=== PATIENT | female | born 1950 | race African-American/Black ===

== ENCOUNTER 2016-08-09 12:37 | Emergency (ER) | payer MEDICARE, MEDICAID ==
[~2016-08-09] VITALS: Ht 170.2 cm; Wt 55.3 kg
[~2016-08-09 12:37] MED LIST: ACETAMINOPHEN-1 EAC1 ORAL; ALBUTEROL SULF8.5 GM INH; AMLODIPINE BESYL5 MG PO; B-121000 MCG PO; BENTYL10 MG ORAL; CALCIUM600 M1 PO; CLINDAMYCIN HC300 MG ORAL; CYCLOBENZAPRINE10 MG ORAL; DOCUSATE SODIU100 MG ORAL; DONNATAL TAB1 TAB ORAL; FERROUS SULFAT325 M2 ORAL; GABAPENTIN100 MG ORAL; GUAIFENESIN-CO118 M1 ORAL; HYDROCODON-ACE1 EA16 ORAL; IRON325 M2 PO; MAALOX ADVANCE770 ML PO; METRONIDAZOLE500 MG ORAL; NICODERM 21MG/241 EA TD; NORCO 10-325 T1 EACH PO; NORCO 5-325 TA1 EACH ORAL; NORCO 5-325 TA1 EACH PO; ONDANSETRON ODT4 MG ORAL; PANTOPRAZOLE SO40 MG ORAL; PROMETHAZINE-C118 M1 ORAL; TYLENOL #31 TAB PO; VITAMIN A8000 UNIT PO; VITAMIN B-12500 MCG ORAL; VITAMIN D3400 UNI2 PO; ZOFRAN ODT4 MG ORAL
[2016-08-09] MEDS ORDERED: ACETAMINOPHEN-1 EAC1 ORAL (13:25)
--- NOTE | 2016-08-09 13:28 | Emergency Room Report ---
History of Present Illness General Chief Complaint: Pain Present Illness HPI The patient is a 66-year-old female with a history of rheumatoid arthritis presenting for a flare up of the arthritis which she states began after the cold weather. The patient has had increased pain of primarily the shoulders and lower back which began 3 days prior.The pain is described as a 10 out of 10 dull ache to these areas The patient states that she usually takes Tylenol No. 3 for the flareups but has not been able to make appointment with her doctor for a refill. Pt denies N, V, F, chills, CP, SOB, coughing, dizziness, rash Allergies: Coded Allergies: IBUPROFEN (Verified Allergy, Severe, HIVES, 12/12/11) Dairy (Unverified Allergy, Unknown, 01/27/16) EGG (Unverified Allergy, Unknown, 01/27/16) IODINE (Verified Allergy, Unknown, 01/13/11) LATEX (Unverified Allergy, Unknown, 01/27/16) [place] (Unverified Allergy, Unknown, 01/27/16) PEACH (Unverified Allergy, Unknown, 01/27/16) PENICILLINS (Verified Allergy, Unknown, 01/13/11) PINEAPPLE (Unverified Allergy, Unknown, HIVES, SWELLING, 01/27/16) STRAWBERRY (Unverified Allergy, Unknown, Hives, 01/27/16) SULFA (SULFONAMIDE ANTIBIOTICS) (Verified Allergy, Unknown, 01/13/11) TRAMADOL (Verified Allergy, Unknown, 02/25/13) PER RN Uncoded Allergies: SEAFOOD (Allergy, Severe, SWELLING, 12/12/11) Patient History Past Medical History: see triage record Pertinent Family History: none Reviewed Nursing Documentation: PMH: Agreed, PSxH: Agreed Nursing Documentation-PMH Hx Hypertension: Yes Hx Pacemaker: No Hx Asthma: Yes Hx COPD: No Hx Diabetes: No Hx Cancer: No Hx Dialysis: No Hx Neurological Problems: No Hx Cerebrovascular Accident: Yes - no deficits Hx Seizures: No Hx Headaches: Yes Review of Systems All Other Systems: negative except mentioned in HPI Physical Exam Vital Signs Date Time Temp Pulse Resp B/P Pulse Ox O2 Delivery O2 Flow Rate FiO2 08/09/16 12:50 98.1 91 20 110/68 95 Room Air Sp02 EP Interpretation: reviewed, normal General Appearance: no apparent distress, alert, GCS 15, non-toxic Head: normocephalic, atraumatic Eyes: bilateral eye PERRL, bilateral eye normal inspection ENT: hearing grossly normal, normal pharynx, no angioedema, normal voice Neck: full range of motion, supple/symm/no masses Respiratory: chest non-tender, lungs clear, normal breath sounds, speaking full sentences Cardiovascular #1: regular rate, rhythm, no edema Musculoskeletal: back normal, normal range of motion, other - Slow gait, tender - TTP over bilat shoulders and low back Neurologic: alert, oriented x3, responsive, motor strength/tone normal, sensory intact, speech normal Psychiatric: judgement/insight normal, memory normal, mood/affect normal, no suicidal/homicidal ideation Skin: normal color, no rash, warm/dry, well hydrated Lymphatic: no adenopathy Medical Decision Making PA Attestation Dr. Rider is my supervising physician. Patient management was discussed with my supervising physician Diagnostic Impression: Primary Impression: Rheumatoid arthritis ER Course The patient is a 66-year-old female with a history of rheumatoid arthritis presenting for a flare up of the arthritis which she states began after the cold weather. Ddx considered include but not limited to sprain/strain, fracture, contusion, arthritis PE: Vitals WNL. NAD There is tenderness to palpation over bilateral shoulders. No obvious deformity. Full active range of motion. Also tenderness to palpation over mid lumbar spine. Slow gait. Otherwise exam unremarkable The patient is given Tylenol #3 for pain with good relief. The patient will be discharged home and will followup with primary care physician as well as pain management. A limited refill for pain medication was given. Last Vital Signs Date Time Temp Pulse Resp B/P Pulse Ox O2 Delivery O2 Flow Rate FiO2 08/09/16 12:50 98.1 91 20 110/68 95 Room Air Status: improved Disposition: HOME, SELF-CARE Condition: Improved Scripts Acetaminophen With Codeine (T#3) (TYLENOL #3 TAB*) Y Tab 2 TAB ORAL Q6H Y for For Pain, #15 TAB Prov: TONY GONZALEZ 08/09/16 Patient Instructions: Rheumatoid Arthritis Additional Instructions: I discussed my findings with the patient. All questions and concerns have been answered. Treatment and medication compliance have been addressed. I advised the patient that they need to follow up with PMD in 3-5 days. Return to ED if symptoms worsen, new symptoms arise, or if needed for any reason. Patient verbalized understanding of discharge instructions. The patient is advised she needs to followup with pain management for further care TONY GONZALEZ Aug 09, 2016 13:27
[2016-08-09] MEDS ORDERED: Tylenol #3 tab (300mg/30mg) ORAL ONE (13:30)
[2016-08-09 13:37] VITALS: BP 110/68
[2016-08-09 13:39] VITALS: BP 110/68
== END 2016-08-09 13:39 | disposition home or self-care (01) ==
LOC: EMR 13:00
DX: M06.9 Rheumatoid arthritis, unspecified (principal); J45.909 Unspecified asthma, uncomplicated; I10 Essential (primary) hypertension; Z88.6 Allergy status to analgesic agent; Z91.012 Allergy to eggs; Z88.2 Allergy status to sulfonamides; Z91.040 Latex allergy status; Z88.0 Allergy status to penicillin; Z91.018 Allergy to other foods; Z91.013 Allergy to seafood; Z86.73 Personal history of transient ischemic attack (TIA), and cerebral infarction without residual deficits
CPT/HCPCS: 99282

== ENCOUNTER 2016-08-09 14:38 | Emergency (ER) | payer MEDICARE, MEDICAID ==
[~2016-08-09] VITALS: Ht 170.2 cm; Wt 55.3 kg
[2016-08-09 14:50] VITALS: BP 120/76
[2016-08-09 15:07] VITALS: BP 120/76
--- NOTE | 2016-08-09 15:09 | Emergency Room Report ---
History of Present Illness General Chief Complaint: Diarrhea Source: Patient (TONY GONZALEZ) Present Illness HPI The pt is a 66 yo F who again presents to the ER today. The pt was seen for chronic pain due to arthritis and NJ'ed . The pt now states she has had diarrhea for the past 2 days. The patient states that she has had 2 episodes of diarrhea today. The patient denies other symptoms including fever, chills, abdominal pain, nausea, vomiting, melena, hematochezia, dizziness, fatigue (TONY GONZALEZ P.AMonica) Allergies: Coded Allergies: IBUPROFEN (Verified Allergy, Severe, HIVES, 12/12/11) Dairy (Unverified Allergy, Unknown, 01/27/16) EGG (Unverified Allergy, Unknown, 01/27/16) IODINE (Verified Allergy, Unknown, 01/13/11) LATEX (Unverified Allergy, Unknown, 01/27/16) [place] (Unverified Allergy, Unknown, 01/27/16) PEACH (Unverified Allergy, Unknown, 01/27/16) PENICILLINS (Verified Allergy, Unknown, 01/13/11) PINEAPPLE (Unverified Allergy, Unknown, HIVES, SWELLING, 01/27/16) STRAWBERRY (Unverified Allergy, Unknown, Hives, 01/27/16) SULFA (SULFONAMIDE ANTIBIOTICS) (Verified Allergy, Unknown, 01/13/11) TRAMADOL (Verified Allergy, Unknown, 02/25/13) PER RN Uncoded Allergies: SEAFOOD (Allergy, Severe, SWELLING, 12/12/11) Patient History Past Medical History: see triage record Pertinent Family History: none Reviewed Nursing Documentation: PMH: Agreed, PSxH: Agreed (TONY GONZALEZ P.AMonica) Nursing Documentation-PMH Past Medical History: No History, Except For Hx Hypertension: No Hx Pacemaker: No Hx Asthma: Yes Hx COPD: No Hx Diabetes: No Hx Cancer: No Hx Gastrointestinal Problems: No Hx Dialysis: No History Of Psychiatric Problem: No Hx Neurological Problems: No Hx Cerebrovascular Accident: Yes - no deficits Hx Seizures: No Hx Headaches: Yes (TONY GONZALEZ P.AMonica) Review of Systems All Other Systems: negative except mentioned in HPI (TONY GONZALEZ P.AMonica) Physical Exam Vital Signs Date Time Temp Pulse Resp B/P Pulse Ox O2 Delivery O2 Flow Rate FiO2 08/09/16 14:50 98.1 90 16 120/76 94 Room Air Sp02 EP Interpretation: reviewed, normal General Appearance: no apparent distress, alert, GCS 15, non-toxic Head: normocephalic, atraumatic Eyes: bilateral eye PERRL, bilateral eye normal inspection Respiratory: chest non-tender, lungs clear, normal breath sounds, speaking full sentences Cardiovascular #1: regular rate, rhythm, no edema Gastrointestinal: normal bowel sounds, non tender, soft, no mass, non-distended , no guarding, no rebound Genitourinary: normal inspection, no CVA tenderness Skin: normal color, no rash, warm/dry, well hydrated (TONY GONZALEZ) Medical Decision Making PA Attestation Dr. Rosales is my supervising physician. Patient management was discussed with my supervising physician (TONY GONZALEZ) Diagnostic Impression: Primary Impression: Diarrhea ER Course The patient is a 66 her old female presenting with 2 days of diarrhea and no other symptoms. Differential diagnosis considered: Gastroenteritis, appendicitis, diverticulosis /diverticulitis, dehydration Physical exam: Vitals within normal limits. No apparent distress. Abdomen: Normal appearance. Non distended. No ecchymosis. Normal BS. Non TTP. No McBurney point tenderness. No guarding. Skin warm and dry. Normal turgor No CVA tenderness The patient is advised this is most likely viral and will self resolve. Patient will continue to take in plenty of oral hydration. Diet information given. ER precautions given (TONY GONZALEZ) Last Vital Signs Date Time Temp Pulse Resp B/P Pulse Ox O2 Delivery O2 Flow Rate FiO2 08/09/16 14:50 98.1 88 16 120/76 94 Room Air Status: improved (TONY GONZALEZ) Last Vital Signs Date Time Temp Pulse Resp B/P Pulse Ox O2 Delivery O2 Flow Rate FiO2 08/09/16 15:07 98.1 90 16 120/76 94 Room Air (Ranulfo Rosales M.D.) Disposition: HOME, SELF-CARE Condition: Improved TONY GONZALEZ Aug 09, 2016 15:09 Ranulfo Rosales M.D. Aug 14, 2016 06:57
== END 2016-08-09 16:00 | disposition home or self-care (01) ==
LOC: EMR 15:54
DX: R19.7 Diarrhea, unspecified (principal); G89.29 Other chronic pain; M19.90 Unspecified osteoarthritis, unspecified site; Z88.2 Allergy status to sulfonamides; Z88.0 Allergy status to penicillin; Z88.6 Allergy status to analgesic agent; Z91.040 Latex allergy status; Z91.012 Allergy to eggs; Z91.018 Allergy to other foods; Z91.013 Allergy to seafood; Z86.73 Personal history of transient ischemic attack (TIA), and cerebral infarction without residual deficits
CPT/HCPCS: 99282

== ENCOUNTER 2016-09-05 21:50 | Emergency (ER) | payer MEDICARE, MEDICAID ==
[~2016-09-05] VITALS: Ht 170.2 cm; Wt 59.0 kg
[2016-09-05] MEDS ORDERED: Solu-MEDROL 125mg Inj IVP ONE (22:30)
[2016-09-05] MEDS ORDERED: Albuterol ud Inhalation HHN ONE (22:30)
[2016-09-05] MEDS ORDERED: Ipratropium 0.02% Inh Soln 2.5ml UD HHN ONE (22:30)
--- NOTE | 2016-09-05 23:03 | Emergency Room Report ---
History of Present Illness General Chief Complaint: Upper Respiratory Illness Source: Patient, Medical Record Present Illness HPI This is a 66-year-old female well-known to me. She has a history of COPD and continued to smoke. Also a history of chronic pain issue. Patient presents with chief complaint of shortness of breath and coughing. Coughing is productive of yellow sputum. Has been a chronic problem for over a month. She would get better with her inhaler and antibiotics. She would then continued to smoke and not using her inhaler and symptom worsen. This took her symptoms been ongoing for about a week. Denies any fever or chills. No nausea no vomiting. Has not used her inhaler. Allergies: Coded Allergies: IBUPROFEN (Verified Allergy, Severe, HIVES, 12/12/11) Dairy (Unverified Allergy, Unknown, 01/27/16) EGG (Unverified Allergy, Unknown, 01/27/16) IODINE (Verified Allergy, Unknown, 01/13/11) LATEX (Unverified Allergy, Unknown, 01/27/16) [place] (Unverified Allergy, Unknown, 01/27/16) PEACH (Unverified Allergy, Unknown, 01/27/16) PENICILLINS (Verified Allergy, Unknown, 01/13/11) PINEAPPLE (Unverified Allergy, Unknown, HIVES, SWELLING, 01/27/16) STRAWBERRY (Unverified Allergy, Unknown, Hives, 01/27/16) SULFA (SULFONAMIDE ANTIBIOTICS) (Verified Allergy, Unknown, 01/13/11) TRAMADOL (Verified Allergy, Unknown, 02/25/13) PER RN Uncoded Allergies: SEAFOOD (Allergy, Severe, SWELLING, 12/12/11) Patient History Past Medical History: see triage record, old chart reviewed, COPD Past Surgical History: other Pertinent Family History: none Social History: Reports: smoking Immunizations: other Reviewed Nursing Documentation: PMH: Agreed, PSxH: Agreed Nursing Documentation-PMH Past Medical History: No History, Except For Hx Hypertension: No Hx Pacemaker: No Hx Asthma: Yes Hx COPD: No Hx Diabetes: No Hx Cancer: No Hx Gastrointestinal Problems: No Hx Dialysis: No Hx Neurological Problems: No Hx Cerebrovascular Accident: Yes - no deficits Hx Seizures: No Hx Headaches: Yes Review of Systems Eye: Denies: blurred vision, eye pain ENT: Denies: ear pain, nose congestion, throat swelling Respiratory: Reports: cough, shortness of breath, wheezing Cardiovascular: Denies: chest pain, palpitations Gastrointestinal: Denies: abdominal pain, diarrhea, nausea, vomiting Musculoskeletal: Denies: back pain, joint pain Skin: Denies: rash Neurological: Denies: headache, numbness Endocrine: Denies: increased thirst, increased urine Hematologic/Lymphatic: Denies: easy bruising All Other Systems: negative except mentioned in HPI Physical Exam Vital Signs Date Time Temp Pulse Resp B/P Pulse Ox O2 Delivery O2 Flow Rate FiO2 09/05/16 22:12 98.6 96 16 178/96 97 09/05/16 22:17 Room Air vitals with hypertension Sp02 EP Interpretation: reviewed, normal General Appearance: alert, mild distress, thin, Chronically Ill Head: normocephalic, atraumatic Eyes: bilateral eye EOMI, bilateral eye PERRL ENT: hearing grossly normal, normal pharynx Neck: full range of motion, supple, no meningismus Respiratory: chest non-tender, decreased breath sounds, accessory muscle use, rhonchi, wheezing Cardiovascular #1: regular rate, rhythm, no murmur Gastrointestinal: normal bowel sounds, non tender, no mass, no organomegaly, no bruit, non-distended Musculoskeletal: back normal, gait/station normal, normal range of motion Neurologic: alert, oriented x3 Psychiatric: mood/affect normal Skin: warm/dry Medical Decision Making Diagnostic Impression: Primary Impression: Pneumonia Qualified Codes: J18.9 - Pneumonia, unspecified organism Additional Impression: COPD with exacerbation ER Course Is a 66-year-old female presents with cough with productive of sputum. X-ray unremarkable. But CT scan show pneumonia. No dissection. Wheezing cleared up. She has risk factor from her smoking and noncompliance with medication. She felt better. I advised her to be admitted to the hospital but she refused. She said she wants to go home. In that case, low put her on antibiotics. No evidence of sepsis, dissection, ACS, PE to name a few. No neoplastic process. Lab Results Impression labs unremarkable Rhythm Strip Diag. Results EP Interpretation: yes Rate: 80 Rhythm: NSR, no PVC's, no ectopy Chest X-Ray Diagnostic Results EP Interpretation: Yes Findings: no consolidation, no effusion, no pneumothorax, no acute cardiopulmonary disease, other - copd Number of Views: 1 CT/MRI/US Diagnostic Results CT/MRI/US Diagnostic Results : Imaging Test Ordered: CT chest Impression read by radiologist. Bilateral lower lobe infiltrates. Last Vital Signs Date Time Temp Pulse Resp B/P Pulse Ox O2 Delivery O2 Flow Rate FiO2 09/05/16 22:17 96 16 Room Air 09/05/16 22:12 98.6 178/96 97 Status: improved Disposition: HOME, SELF-CARE Condition: Stable Scripts Levofloxacin* (LEVAQUIN*) 500 Mg Tablet 500 MG ORAL DAILY, #10 TAB Prov: DON LLOYD M.D. 09/06/16 Prednisone* (PREDNISONE*) 20 Mg Tablet 40 MG ORAL DAILY, #8 TAB Prov: DON LLOYD M.D. 09/06/16 Albuterol Sulfate* (ALBUTEROL SULFATE MDI*) 8.5 Gm Hfa.aer.ad 2 PUFF INH Q4H Y for cough/wheezing, #1 EA 0 Refills Prov: DON LLOYD M.D. 09/06/16 Referrals: NON PHYSICIAN (PCP) Additional Instructions: Followup with your DrMonica in one to 2 days. Return if symptom worsen. DON LLOYD M.D. Sep 05, 2016 23:03
[2016-09-05 23:15] VITALS: BP 131/78
[2016-09-05 23:19] LABS: BASOPHILS % (AUTO) 0.6 % (0.0-2.0); MEAN CORPUSCULAR HEMOGLOBIN 24.7 PG (27.0-31.0); MEAN CORPUSCULAR VOLUME 80 FL (80-99); MONOCYTES % (AUTO) 2.5 % (1.0-10.0); PLATELET COUNT 419 K/UL (150-450); RED BLOOD COUNT 5.45 M/UL (4.20-5.40); RED CELL DISTRIBUTION WIDTH 13.7 % (11.6-14.8); WHITE BLOOD COUNT 14.7 K/UL (4.8-10.8)
[2016-09-05] MEDS ORDERED: DiphenhydrAMINE 50mg/ml Inj IVP ONE (23:30)
[2016-09-05 23:32] LABS: ALANINE AMINOTRANSFERASE 8 U/L (3-33); ALBUMIN/GLOBULIN RATIO 1.2 (1.0-2.7); ANION GAP 16 (5-15); ASPARTATE AMINO TRANSFERASE 18 U/L (5-40); CALCIUM 9.6 mg/dL (8.6-10.2); CARBON DIOXIDE 30 mEQ/L (20-30); CHLORIDE 94 mEQ/L (98-107); CREATININE 0.5 mg/dL (0.5-0.9); GLOMERULAR FILTRATION RATE > 60 mL/min (>60); HEMOLYSIS 6; SODIUM 140 mEQ/L (135-145); TOTAL PROTEIN 7.6 g/dL (6.6-8.7); TROPONIN I < 0.30 ng/mL (<=0.30)
[2016-09-05 23:37] LABS: APPEARANCE,URINE CLEAR; KETONES,URINE NEGATIVE (NEGATIVE); LEUKOCYTE ESTERASE ,URINE 1+ (NEGATIVE); NITRITE,URINE POSITIVE (NEGATIVE); PH,URINE 6.5 (4.5-8.0); PROTEIN,URINE NEGATIVE (NEGATIVE); UROBILINOGEN,URINE 1 MG/DL (0.0-1.0)
[2016-09-06 00:15] LABS: BACTERIA,URINE FEW /HPF; RBC,URINE 0-2 /HPF (0 - 2); SQUAMOUS EPITHELIAL CELL,UR FEW /LPF (NONE/OCC)
[2016-09-06 01:15] VITALS: BP 135/88
[2016-09-06] MEDS ORDERED: cefTRIAXone 1 GM in NS 55 ML IVPB ONE (01:30)
[2016-09-06] MEDS ORDERED: ALBUTEROL SULF8.5 GM INH (01:37)
[2016-09-06] MEDS ORDERED: LEVAQUIN500 MG ORAL (01:37)
[2016-09-06] MEDS ORDERED: PREDNISONE20 MG ORAL (01:37)
[2016-09-06] MEDS ORDERED: Ketorolac 30mg Inj ONE (01:53)
[2016-09-06] MEDS ORDERED: Ketorolac 30mg Inj IV ONE (02:00)
[2016-09-06 02:02] VITALS: BP 135/88
--- NOTE | 2016-09-06 10:46 | Diagnostic Imaging Report ---
ndication: SOB, chest pain Technique: IV administration nonionic contrast. Spiral acquisitions obtained from the lung bases to the lung apices. Multiplanar and 3-D reconstructions were generated. Total dose length product 727 mGycm. CTDIvol(s) 12, 50, 21 mGy Comparison: None Findings: There is good opacification of the pulmonary arteries. No intraluminal filling defects or other findings to suggest acute pulmonary embolus are demonstrated. No evidence of thoracic aortic aneurysm or dissection. Normal caliber pulmonary arteries. No evidence of left ventricular dilatation. There is classic branching anatomy of the great neck vessels. There is borderline cardiomegaly. The lungs demonstrate an area of groundglass opacity in the inferior left upper lobe, smaller similar area in the inferior right upper lobe, and some groundglass opacities and associated nodularity in both lower lobes. No effusions. No dense consolidation. No definite masses. No pericardial effusion is demonstrated. There are prominent mediastinal lymph nodes, with paratracheal nodes measuring up to 15 mm long axis dimension. The thyroid is unremarkable. No axillary or chest wall mass or adenopathy. There are mild degenerative changes of the thoracic spine aerated Included upper abdomen demonstrates pneumobilia. Impression: No evidence of acute pulmonary embolus Bilateral parenchymal opacities, as described. Nonspecific, could reflect areas of acute inflammation, post inflammatory change, or pulmonary edema. Correlation with clinical findings is recommended. Recommend followup to resolution Borderline mediastinal lymphadenopathy. Nonspecific, could be reactive or neoplastic Incidental finding of pneumobilia. Correlate with any prior clinical history of endobiliary intervention This agrees with the preliminary interpretation provided overnight by [facility] teleradiology service. The CT scanner at [facility] is accredited by the [employer] and the scans are performed using protocols designed to limit radiation exposure to as low as reasonably achievable to attain images of sufficient resolution adequate for diagnostic evaluation.
--- NOTE | 2016-09-06 17:42 | Diagnostic Imaging Report ---
Indication: SOB Technique: One view of the chest Comparison: none Findings: Lungs and pleural spaces are clear. Heart size is normal. The aorta is tortuous. There is no significant interim change Impression: No acute process
== END 2016-09-06 02:02 | disposition home or self-care (01) ==
LOC: EMR 22:29
DX: J18.9 Pneumonia, unspecified organism (principal); J44.1 Chronic obstructive pulmonary disease with (acute) exacerbation; F17.200 Nicotine dependence, unspecified, uncomplicated; Z88.6 Allergy status to analgesic agent; Z91.012 Allergy to eggs; Z91.011 Allergy to milk products; Z91.013 Allergy to seafood; Z88.0 Allergy status to penicillin; Z91.018 Allergy to other foods; Z88.2 Allergy status to sulfonamides; Z91.041 Radiographic dye allergy status; Z86.73 Personal history of transient ischemic attack (TIA), and cerebral infarction without residual deficits; Z87.09 Personal history of other diseases of the respiratory system; I10 Essential (primary) hypertension
CPT/HCPCS: 36415; 71010; 71275; 80053; 81003; 83605; 84484; 85025; 85610; 85730; 87040; 87070; 87205; 94640; 94664; 96360; 96374; 96375; 99284; J0696; J1200; J1885; J2930; Q9967

== ENCOUNTER 2016-11-10 18:28 | Emergency (ER) | payer MEDICARE, MEDICAID ==
[~2016-11-10] VITALS: Ht 170.2 cm; Wt 55.3 kg
[~2016-11-10 18:28] MED LIST changes: +LEVAQUIN500 MG ORAL; +PREDNISONE20 MG ORAL
[2016-11-10] MEDS ORDERED: Clindamycin 150mg cap ORAL STA (18:51)
--- NOTE | 2016-11-10 18:56 | Emergency Room Report ---
History of Present Illness General Chief Complaint: Pain Source: Patient Present Illness HPI Patient presents with R forehead pain. This began last night. There is some swelling. There has been some tearing and swelling below R eye. Pain constant 10/10, burning and pressure. Not headache. Some swelling in forehead. No fevers, sinus pain, URI, chest pain, Patient with chronic anemia. No rashes. No change in vision. No pain medicine at home. In past seen for headache and rheumatoid arthritis. Allergies: Coded Allergies: IBUPROFEN (Verified Allergy, Severe, HIVES, 12/12/11) Dairy (Unverified Allergy, Unknown, 01/27/16) EGG (Unverified Allergy, Unknown, 01/27/16) IODINE (Verified Allergy, Unknown, 01/13/11) LATEX (Unverified Allergy, Unknown, 01/27/16) [place] (Unverified Allergy, Unknown, 01/27/16) PEACH (Unverified Allergy, Unknown, 01/27/16) PENICILLINS (Verified Allergy, Unknown, 01/13/11) PINEAPPLE (Unverified Allergy, Unknown, HIVES, SWELLING, 01/27/16) STRAWBERRY (Unverified Allergy, Unknown, Hives, 01/27/16) SULFA (SULFONAMIDE ANTIBIOTICS) (Verified Allergy, Unknown, 01/13/11) TRAMADOL (Verified Allergy, Unknown, 02/25/13) PER RN Uncoded Allergies: SEAFOOD (Allergy, Severe, SWELLING, 12/12/11) Patient History Past Medical History: see triage record Social History: Reports: smoking Social History Narrative at home Now: No Nursing Documentation-[facility] Past Medical History: No History, Except For Hx Hypertension: No Hx Pacemaker: No Hx Asthma: Yes Hx COPD: No Hx Diabetes: No Hx Cancer: No Hx Gastrointestinal Problems: No Hx Dialysis: No Hx Neurological Problems: No Hx Cerebrovascular Accident: Yes - no deficits Hx Seizures: No Hx Headaches: Yes Review of Systems All Other Systems: negative except mentioned in HPI Physical Exam Vital Signs Date Time Temp Pulse Resp B/P Pulse Ox O2 Delivery O2 Flow Rate FiO2 11/10/16 18:38 98.1 96 15 127/77 97 Room Air Sp02 EP Interpretation: reviewed, normal General Appearance: well appearing, no apparent distress Head: normocephalic, atraumatic, other - swelling R forehead, no fluctuance - area 1X1.5 Eyes: right eye other - no FB, bilateral eye EOMI, bilateral eye PERRL, bilateral eye conjunctivae pale, bilateral eye normal inspection ENT: hearing grossly normal, normal voice, moist mucus membranes Neck: full range of motion, supple Respiratory: lungs clear, no respiratory distress, speaking full sentences Cardiovascular #1: regular rate, rhythm, no edema Musculoskeletal: back normal, digits/nails normal, no calf tenderness Neurologic: alert, oriented x3, normal gait, grossly normal Psychiatric: mood/affect normal Skin: no rash, pallor Medical Decision Making Diagnostic Impression: Primary Impression: Facial cellulitis ER Course Patient with pain forehead. DDx: cellulitis, zoster, trigeminal neuralgia amongst others. Diagnosis is clinical (as much as possible at this time - no lab studies or imaging will help with dx.) Treated for cellulitis and pain. Cannot exclude trigeminal neuralgia. Also could be early zoster. Antibiotics started. No emergent condition at this time. However, significant pain with is improved with treatment. Patient stable for outpatient observation and treatment. Status: improved Disposition: HOME, SELF-CARE Condition: Improved Scripts Bacitracin (Bacitracin) 28.4 Gm Oint...g. 1 APPLIC TOPIC BID, #10 GM Prov: Ranulfo Rosales M.D. 11/10/16 Hydrocodone Bit/Acetaminophen 5-325* (NORCO 5-325*) 1 Each Tablet 1 TAB ORAL Q6H Y for For Pain, #10 TAB 0 Refills Prov: Ranulfo Rosales M.D. 11/10/16 Clindamycin Hcl (CLINDAMYCIN HCL) 300 Mg Capsule 300 MG ORAL THREE TIMES A DAY, #21 CAP Prov: Ranulfo Rosales M.D. 11/10/16 Referrals: NON PHYSICIAN (PCP) Ranulfo Rosales M.D. Nov 10, 2016 18:56
[2016-11-10] MEDS ORDERED: BACITRACIN15 GM TOPIC (18:59)
[2016-11-10] MEDS ORDERED: CLINDAMYCIN HC300 MG ORAL (18:59)
[2016-11-10] MEDS ORDERED: NORCO 5-325 TA1 EACH ORAL (18:59)
[2016-11-10] MEDS ORDERED: Bacitracin Oint UD TOPIC ONE (19:00)
[2016-11-10] MEDS ORDERED: Oxycodone/Acetaminophen 5-325 ORAL ONE (19:00)
[2016-11-10 19:26] VITALS: BP 134/84
== END 2016-11-10 19:28 | disposition home or self-care (01) ==
LOC: EMR 18:52
DX: L03.211 Cellulitis of face (principal); D64.9 Anemia, unspecified; J45.909 Unspecified asthma, uncomplicated; Z88.6 Allergy status to analgesic agent; Z91.040 Latex allergy status; Z88.0 Allergy status to penicillin; Z91.018 Allergy to other foods; Z91.013 Allergy to seafood; Z88.2 Allergy status to sulfonamides; Z91.012 Allergy to eggs
CPT/HCPCS: 99284

== ENCOUNTER 2016-12-02 18:52 | Emergency (ER) | payer MEDICARE, MEDICAID ==
[~2016-12-02] VITALS: Ht 172.7 cm; Wt 60.3 kg
[~2016-12-02 18:52] MED LIST changes: +BACITRACIN15 GM TOPIC
[2016-12-02] MEDS ORDERED: Methocarbamol 750mg tab ORAL ONE (19:15)
[2016-12-02] MEDS ORDERED: LOPERAMIDE2 M1 PO (19:21)
[2016-12-02] MEDS ORDERED: PANTOPRAZOLE SO40 MG ORAL (19:21)
[2016-12-02] MEDS ORDERED: PEPCID20 MG ORAL (19:21)
--- NOTE | 2016-12-02 19:29 | Emergency Room Report ---
History of Present Illness General Chief Complaint: Abdominal Pain Source: Patient Present Illness HPI [id number] presents with 4 days of watery diarrhea and epigastric pain, known gastritis seen on recent EGD. Ran out of home pantoprazole. Denies nausea/ vomiting, fever/chills. Denies history of diverticulitis, colitis. Denies urinary complaints. here frequently for similar complaints. Denies chest pain , SOB. Allergies: Coded Allergies: IBUPROFEN (Verified Allergy, Severe, HIVES, 12/12/11) Dairy (Unverified Allergy, Unknown, 01/27/16) EGG (Unverified Allergy, Unknown, 01/27/16) IODINE (Verified Allergy, Unknown, 01/13/11) LATEX (Unverified Allergy, Unknown, 01/27/16) [place] (Unverified Allergy, Unknown, 01/27/16) PEACH (Unverified Allergy, Unknown, 01/27/16) PENICILLINS (Verified Allergy, Unknown, 01/13/11) PINEAPPLE (Unverified Allergy, Unknown, HIVES, SWELLING, 01/27/16) STRAWBERRY (Unverified Allergy, Unknown, Hives, 01/27/16) SULFA (SULFONAMIDE ANTIBIOTICS) (Verified Allergy, Unknown, 01/13/11) TRAMADOL (Verified Allergy, Unknown, 02/25/13) PER RN Uncoded Allergies: SEAFOOD (Allergy, Severe, SWELLING, 12/12/11) Patient History Past Medical History: other - gastritis, chronic LBP Past Surgical History: none Pertinent Family History: none Social History: Denies: alcohol use, drug use, smoking Last Menstrual Period: na Now: No Immunizations: UTD Reviewed Nursing Documentation: PMH: Agreed, PSxH: Agreed Nursing Documentation-PMH Past Medical History: No History, Except For Hx Hypertension: No Hx Pacemaker: No Hx Asthma: Yes Hx COPD: No Hx Diabetes: No Hx Cancer: No Hx Gastrointestinal Problems: No Hx Dialysis: No Hx Neurological Problems: No Hx Cerebrovascular Accident: Yes Hx Seizures: No Hx Headaches: Yes Review of Systems All Other Systems: negative except mentioned in HPI Physical Exam Vital Signs Date Time Temp Pulse Resp B/P Pulse Ox O2 Delivery O2 Flow Rate FiO2 12/02/16 18:59 97.7 101 18 112/71 98 Room Air Sp02 EP Interpretation: reviewed, abnormal General Appearance: normal inspection, well appearing, no apparent distress, alert, GCS 15, non-toxic Head: normocephalic, atraumatic Eyes: bilateral eye EOMI, bilateral eye PERRL ENT: normal ENT inspection, hearing grossly normal, normal voice Neck: normal inspection, full range of motion, supple, no bony tend Respiratory: normal inspection, lungs clear, normal breath sounds, no respiratory distress, no retraction, no wheezing Cardiovascular #1: regular rate, rhythm, no edema Gastrointestinal: normal inspection, normal bowel sounds, non tender, soft, no guarding, no hernia Genitourinary: no CVA tenderness Musculoskeletal: normal inspection, back normal, normal range of motion, Wade' s Sign negative Neurologic: normal inspection, alert, oriented x3, responsive, asset protection specialist III-XII nml as tested, motor strength/tone normal, speech normal Psychiatric: normal inspection, judgement/insight normal, mood/affect normal Skin: normal inspection, normal color, no rash Lymphatic: normal inspection Medical Decision Making Diagnostic Impression: Primary Impression: Abdominal pain Qualified Codes: R10.13 - Epigastric pain Additional Impressions: Diarrhea Qualified Codes: R19.7 - Diarrhea, unspecified Drug-seeking behavior ER Course 4 days watery diarrhea - no recent Abx, unlikely Cdiff - Unlikely infectious - no foreign travel/camping - No sick contacts - possibly acute viral gastroenteritis - Patient requested somethign to "stop diarrhea" here - was given immodium and pepcid. - Then patient wanted "something for pain" even though I told her pepcid was for pain. Specific requests made for narcotic meds for pain. Concern for drug seeking behavior. - Has exhibited such behavior in the past. Refilled her pantoprazole along with Rx Pepcid and Immodium Strict outpatient followup with PMD Last Vital Signs Date Time Temp Pulse Resp B/P Pulse Ox O2 Delivery O2 Flow Rate FiO2 12/02/16 18:59 97.7 101 18 112/71 98 Room Air Status: improved Disposition: HOME, SELF-CARE Condition: Improved Scripts Famotidine (PEPCID) 20 Mg Tablet 20 MG ORAL BID for 7 Days, #14 TAB 0 Refills Prov: LACY CAMARGO M.D. 12/02/16 Pantoprazole* (PANTOPRAZOLE*) 40 Mg Tablet. 40 MG ORAL DAILY for 30 Days, #30 TAB Prov: LACY CAMARGO M.D. 12/02/16 Loperamide Hcl (LOPERAMIDE) 2 Mg Tablet 2 MG PO DAILY for 7 Days, #7 TAB Prov: LACY CAMARGO M.D. 12/02/16 Patient Instructions: Gastritis, Adult Additional Instructions: - Take Pantoprazole each morning before breakfast - Take pepcid every day, twice daily, for 1 week - Take loperamide once daily for diarrhea - Follow up with your doctor regarding the results of your endoscopy - Follow up with your doctor in 1 week LACY CAMARGO M.D. December 02, 2016 19:29
[2016-12-02] MEDS ORDERED: Loperamide 2mg cap ORAL ONE (19:30)
[2016-12-02 19:42] VITALS: BP 112/71
== END 2016-12-02 19:51 | disposition home or self-care (01) ==
LOC: EMR 19:41
DX: R10.13 Epigastric pain (principal); R19.7 Diarrhea, unspecified; J45.909 Unspecified asthma, uncomplicated; Z76.5 Malingerer [conscious simulation]; Z88.2 Allergy status to sulfonamides; Z88.6 Allergy status to analgesic agent; Z91.012 Allergy to eggs; Z91.011 Allergy to milk products; Z91.040 Latex allergy status; Z88.0 Allergy status to penicillin; Z91.018 Allergy to other foods; Z91.013 Allergy to seafood; Z86.73 Personal history of transient ischemic attack (TIA), and cerebral infarction without residual deficits
CPT/HCPCS: 99284

== ENCOUNTER 2016-12-31 23:15 | Emergency (ER) | payer MEDICARE, MEDICAID ==
[~2016-12-31] VITALS: Ht 172.7 cm; Wt 55.8 kg
[~2016-12-31 23:15] MED LIST changes: +LOPERAMIDE2 M1 PO; +PEPCID20 MG ORAL
[2016-12-31 23:20] VITALS: BP 169/99
[2016-12-31] MEDS ORDERED: NKM (23:24)
--- NOTE | 2017-01-01 00:23 | Emergency Room Report ---
History of Present Illness General Chief Complaint: Flu Like Symptoms Source: Patient Present Illness HPI Patient presented with complaints of cough Patient was taking Robitussin however it was not helping much Denies any headache or visual changes however she does have general weakness Denies any dysuria frequency denies any recent travel Denies any back or flank pain Patient feels that the cough has been productive Allergies: Coded Allergies: IBUPROFEN (Verified Allergy, Severe, HIVES, 12/31/16) Dairy (Unverified Allergy, Unknown, 12/31/16) EGG (Unverified Allergy, Unknown, 12/31/16) IODINE (Verified Allergy, Unknown, 12/31/16) LATEX (Unverified Allergy, Unknown, 01/27/16) [place] (Unverified Allergy, Unknown, 01/27/16) PEACH (Unverified Allergy, Unknown, 12/31/16) PENICILLINS (Verified Allergy, Unknown, 12/31/16) PINEAPPLE (Unverified Allergy, Unknown, HIVES, SWELLING, 12/31/16) STRAWBERRY (Unverified Allergy, Unknown, Hives, 12/31/16) SULFA (SULFONAMIDE ANTIBIOTICS) (Verified Allergy, Unknown, 12/31/16) TRAMADOL (Verified Allergy, Unknown, 12/31/16) PER RN Uncoded Allergies: SEAFOOD (Allergy, Severe, SWELLING, 12/12/11) Patient History Past Medical History: see triage record Pertinent Family History: none Last Menstrual Period: n/a Reviewed Nursing Documentation: PMH: Agreed, PSxH: Agreed Nursing Documentation-PMH Past Medical History: No History, Except For Hx Hypertension: No Hx Pacemaker: No Hx Asthma: Yes Hx COPD: No Hx Diabetes: No Hx Cancer: No Hx Gastrointestinal Problems: No Hx Dialysis: No Hx Neurological Problems: No Hx Cerebrovascular Accident: Yes Hx Seizures: No Hx Headaches: Yes Review of Systems All Other Systems: negative except mentioned in HPI Physical Exam Vital Signs Date Time Temp Pulse Resp B/P Pulse Ox O2 Delivery O2 Flow Rate FiO2 12/31/16 23:19 99.5 111 16 169/99 99 Room Air Sp02 EP Interpretation: reviewed, normal General Appearance: well appearing - However patient does appear frail and thin Head: normocephalic, atraumatic Eyes: bilateral eye EOMI, bilateral eye PERRL ENT: normal pharynx, no angioedema Neck: supple Respiratory: lungs clear, normal breath sounds Cardiovascular #1: regular rate, rhythm, no edema Gastrointestinal: non tender, soft Genitourinary: no CVA tenderness Musculoskeletal: normal inspection Neurologic: alert, oriented x3, responsive Skin: normal color, no rash Lymphatic: no adenopathy Medical Decision Making Diagnostic Impression: Primary Impression: Pneumonia ER Course Patient is a fairly complex patient with multiple differential to consideration including but not limited to cardiac cardiopulmonary and vascular emergencies Given the patient's presentation and baseline blood was initiated there is evidence of leukocytosis which appears to be worsening from previous patient chest x-ray is somewhat nonspecific no obvious focal infiltrate however there is some haziness the left lower lobe and given the findings consideration for pneumonia is made Patient provided IV antibiotics and requires further inpatient care Labs Test 01/01/17 00:25 White Blood Count 17.6 K/UL (4.8-10.8) Red Blood Count 5.00 M/UL (4.20-5.40) Hemoglobin 11.7 G/DL (12.0-16.0) Hematocrit 39.1 % (37.0-47.0) Mean Corpuscular Volume 78 FL (80-99) Mean Corpuscular Hemoglobin 23.5 PG (27.0-31.0) Mean Corpuscular Hemoglobin Concent 30.0 G/DL (32.0-36.0) Red Cell Distribution Width 12.7 % (11.6-14.8) Platelet Count 360 K/UL (150-450) Mean Platelet Volume 7.2 FL (6.5-10.1) Neutrophils (%) (Auto) 84.1 % (45.0-75.0) Lymphocytes (%) (Auto) 13.3 % (20.0-45.0) Monocytes (%) (Auto) 1.6 % (1.0-10.0) Eosinophils (%) (Auto) 0.3 % (0.0-3.0) Basophils (%) (Auto) 0.6 % (0.0-2.0) Sodium Level 142 mEQ/L (135-145) Potassium Level 4.6 mEQ/L (3.4-4.9) Chloride Level 99 mEQ/L (98-107) Carbon Dioxide Level 30 mEQ/L (20-30) Anion Gap 13 (5-15) Blood Urea Nitrogen 8 mg/dL (7-23) Creatinine 0.5 mg/dL (0.5-0.9) Estimat Glomerular Filtration Rate > 60 mL/min (>60) Glucose Level 107 mg/dL (74-106) Calcium Level 9.6 mg/dL (8.6-10.2) Total Bilirubin 0.3 mg/dL (0.0-1.2) Aspartate Amino Transf (AST/SGOT) 18 U/L (5-40) Alanine Aminotransferase (ALT/SGPT) 11 U/L (3-33) Alkaline Phosphatase 137 U/L (35-104) Total Protein 7.6 g/dL (6.6-8.7) Albumin 3.5 g/dL (3.5-5.2) Globulin 4.1 g/dL Albumin/Globulin Ratio 0.8 (1.0-2.7) Lipase 12 U/L (< 60) Rhythm Strip Diag. Results EP Interpretation: yes Rate: 77 Rhythm: NSR, no PVC's, no ectopy Chest X-Ray Diagnostic Results Chest X-Ray Ordered: Yes # of Views/Limited/Complete: 1 View Interpretation: no pneumothorax, other - Left lower lobe haziness questionable retrocardiac pathology, no obvious acute bony abnormalities, Indication: Shortness of Breath Impression: Other - left lower lobe Date Electronically Signed: Jan 01, 2017 Time Electronically Signed: 00:20 Interpreting ER Physician: Dr landaverde Last Vital Signs Date Time Temp Pulse Resp B/P Pulse Ox O2 Delivery O2 Flow Rate FiO2 12/31/16 23:25 105 16 Room Air 12/31/16 23:20 99.5 169/99 99 Status: improved Disposition: ADMITTED INPATIENT Condition: Serious Referrals: NON PHYSICIAN (PCP) SHIVAM LANDAVERDE D.O. Jan 01, 2017 00:23
[2017-01-01 00:47] LABS: BASOPHILS % (AUTO) 0.6 % (0.0-2.0); EOSINOPHILS % (AUTO) 0.3 % (0.0-3.0); LYMPHOCYTES % (AUTO) 13.3 % (20.0-45.0); MEAN CORPUSCULAR HEMOGLOBIN 23.5 PG (27.0-31.0); MEAN CORPUSCULAR VOLUME 78 FL (80-99); MEAN PLATELET VOLUME 7.2 FL (6.5-10.1); MONOCYTES % (AUTO) 1.6 % (1.0-10.0); NEUTROPHILS % (AUTO) 84.1 % (45.0-75.0); PLATELET COUNT 360 K/UL (150-450); RED CELL DISTRIBUTION WIDTH 12.7 % (11.6-14.8); WHITE BLOOD COUNT 17.6 K/UL (4.8-10.8)
[2017-01-01 01:07] LABS: ALANINE AMINOTRANSFERASE 11 U/L (3-33); ALBUMIN/GLOBULIN RATIO 0.8 (1.0-2.7); ANION GAP 13 (5-15); ASPARTATE AMINO TRANSFERASE 18 U/L (5-40); CALCIUM 9.6 mg/dL (8.6-10.2); CARBON DIOXIDE 30 mEQ/L (20-30); CHLORIDE 99 mEQ/L (98-107); CREATININE 0.5 mg/dL (0.5-0.9); GLOMERULAR FILTRATION RATE > 60 mL/min (>60); HEMOLYSIS 18; LIPASE 12 U/L (< 60); POTASSIUM 4.6 mEQ/L (3.4-4.9); SODIUM 142 mEQ/L (135-145); TOTAL PROTEIN 7.6 g/dL (6.6-8.7)
[2017-01-01 01:20] VITALS: BP 161/95
[2017-01-01 03:20] VITALS: BP 154/98
[2017-01-01] MEDS ORDERED: LEVAQUIN750 MG ORAL (04:37)
[2017-01-01 05:10] VITALS: BP 161/89
--- NOTE | 2017-01-02 09:34 | Diagnostic Imaging Report ---
Indications: Shortness of breath Technique: Portable AP chest Findings: Comparison: 09/05/16 Cardiac silhouette remains normal in size. Pulmonary vasculature remains within normal limits. Lungs and pleura remain clear. Mild calcification and elongation of the aortic arch, thoracic vertebral disc marginal osteophytes and mild scoliosis, right upper abdominal surgical clips are again noted. IMPRESSION: No evidence of acute disease, unchanged Stable chronic changes as described
== END 2017-01-01 05:10 | disposition left against medical advice (07) ==
LOC: ENRESERVDT → ENRESERVTM → EMR 23:55 → 4E 01-01 01:37 → UNDOADMIN 01-01 01:37 → EDBEDREQ 01-01 03:48
DX: J18.9 Pneumonia, unspecified organism (principal); Z88.6 Allergy status to analgesic agent; Z91.011 Allergy to milk products; Z91.012 Allergy to eggs; Z91.040 Latex allergy status; Z91.018 Allergy to other foods; Z88.0 Allergy status to penicillin; Z88.2 Allergy status to sulfonamides; Z91.013 Allergy to seafood; Z91.041 Radiographic dye allergy status
CPT/HCPCS: 36415; 71010; 80053; 83690; 85025; 87040; 87181; 96360; 96361; 99284; J1956

== ENCOUNTER 2017-02-01 00:06 | Emergency (ER) | payer MEDICARE, MEDICAID ==
[~2017-02-01] VITALS: Ht 172.7 cm; Wt 54.4 kg
[~2017-02-01 00:06] MED LIST changes: +LEVAQUIN750 MG ORAL; +NKM
[2017-02-01] MEDS ORDERED: VITAMIN B122500 MCG PO (00:23)
[2017-02-01] MEDS ORDERED: BUSPIRONE HCL5 M2 ORAL (00:23)
[2017-02-01] MEDS ORDERED: ADVAIR 250-501 EACH INH (00:23)
[2017-02-01] MEDS ORDERED: GABAPENTIN400 MG ORAL (00:23)
[2017-02-01] MEDS ORDERED: Ipratropium 0.02% Inh Soln 2.5ml UD HHN ONE (00:30)
[2017-02-01] MEDS ORDERED: Albuterol ud Inhalation HHN ONE (00:30)
[2017-02-01 01:28] LABS: BASOPHILS % (AUTO) 0.6 % (0.0-2.0); EOSINOPHILS % (AUTO) 5.4 % (0.0-3.0); LYMPHOCYTES % (AUTO) 29.6 % (20.0-45.0); MEAN CORPUSCULAR HEMOGLOBIN 23.6 PG (27.0-31.0); MEAN CORPUSCULAR HGB CONC 29.7 G/DL (32.0-36.0); MEAN CORPUSCULAR VOLUME 80 FL (80-99); MONOCYTES % (AUTO) 2.7 % (1.0-10.0); NEUTROPHILS % (AUTO) 61.7 % (45.0-75.0); PLATELET COUNT 249 K/UL (150-450); RED BLOOD COUNT 4.39 M/UL (4.20-5.40); RED CELL DISTRIBUTION WIDTH 13.3 % (11.6-14.8); WHITE BLOOD COUNT 7.8 K/UL (4.8-10.8)
[2017-02-01 01:57] LABS: ALANINE AMINOTRANSFERASE 10 U/L (3-33); ANION GAP 8 (5-15); ASPARTATE AMINO TRANSFERASE 16 U/L (5-40); CALCIUM 8.7 mg/dL (8.6-10.2); CARBON DIOXIDE 33 mEQ/L (20-30); CHLORIDE 102 mEQ/L (98-107); CREATININE 0.5 mg/dL (0.5-0.9); GLOMERULAR FILTRATION RATE > 60 mL/min (>60); HEMOLYSIS 10; POTASSIUM 3.6 mEQ/L (3.4-4.9); SODIUM 143 mEQ/L (135-145); TOTAL PROTEIN 6.7 g/dL (6.6-8.7)
[2017-02-01 02:00] LABS: TROPONIN I < 0.30 ng/mL (<=0.30)
[2017-02-01] MEDS ORDERED: Oxycodone/Acetaminophen 5-325 ORAL ONE (02:15)
[2017-02-01 02:25] LABS: CKMB < 1.5 ng/mL (< 3.8)
[2017-02-01] MEDS ORDERED: ALBUTEROL SULF8.5 GM INH (02:31)
[2017-02-01] MEDS ORDERED: PREDNISONE20 MG ORAL (02:31)
[2017-02-01] MEDS ORDERED: LEVAQUIN750 MG ORAL (02:31)
--- NOTE | 2017-02-01 03:39 | Emergency Room Report ---
History of Present Illness General Chief Complaint: Dyspnea/Respdistress Source: Patient Present Illness HPI 66-year-old female presents ED complaining of cough with shortness of breath x3 days. Patient notes history of asthma. Notes cough with productive sputum. Denies fevers or chills. Denies chest pain. Patient is complaining of swelling in her bilateral legs and feet. No other aggravating relieving factors. Denies any other associated symptom Allergies: Coded Allergies: IBUPROFEN (Verified Allergy, Severe, HIVES, 12/31/16) Dairy (Unverified Allergy, Unknown, 12/31/16) EGG (Unverified Allergy, Unknown, 12/31/16) IODINE (Verified Allergy, Unknown, 12/31/16) LATEX (Unverified Allergy, Unknown, 01/27/16) [place] (Unverified Allergy, Unknown, 01/27/16) PEACH (Unverified Allergy, Unknown, 12/31/16) PENICILLINS (Verified Allergy, Unknown, 12/31/16) PINEAPPLE (Unverified Allergy, Unknown, HIVES, SWELLING, 12/31/16) STRAWBERRY (Unverified Allergy, Unknown, Hives, 12/31/16) SULFA (SULFONAMIDE ANTIBIOTICS) (Verified Allergy, Unknown, 12/31/16) TRAMADOL (Verified Allergy, Unknown, 12/31/16) PER RN Uncoded Allergies: SEAFOOD (Allergy, Severe, SWELLING, 12/12/11) Patient History Past Medical History: asthma Past Surgical History: none Pertinent Family History: none Social History: Denies: alcohol use, drug use, smoking Last Menstrual Period: none Now: No Immunizations: UTD Reviewed Nursing Documentation: PMH: Agreed, PSxH: Agreed Nursing Documentation-PMH Hx Hypertension: No Hx Pacemaker: No Hx Asthma: Yes Hx Diabetes: No Hx Cancer: No Hx Gastrointestinal Problems: No Hx Dialysis: No Hx Neurological Problems: No Hx Seizures: No Hx Headaches: Yes Review of Systems All Other Systems: negative except mentioned in HPI Physical Exam Vital Signs Date Time Temp Pulse Resp B/P Pulse Ox O2 Delivery O2 Flow Rate FiO2 02/01/17 00:14 98.1 87 18 139/84 96 Room Air Sp02 EP Interpretation: reviewed, normal General Appearance: no apparent distress, alert, GCS 15, non-toxic, thin Head: normocephalic Eyes: bilateral eye PERRL, bilateral eye normal inspection ENT: hearing grossly normal, normal pharynx, no angioedema, normal voice Neck: normal inspection Respiratory: chest non-tender, normal breath sounds, crackles, speaking full sentences Cardiovascular #1: regular rate, rhythm, no edema Gastrointestinal: normal bowel sounds, non tender, soft, non-distended, no guarding, no rebound Rectal: deferred Genitourinary: no CVA tenderness Musculoskeletal: back normal Neurologic: alert, oriented x3, responsive, motor strength/tone normal, sensory intact, speech normal Psychiatric: judgement/insight normal, memory normal, mood/affect normal, no suicidal/homicidal ideation Skin: normal inspection Lymphatic: normal inspection Medical Decision Making Diagnostic Impression: Primary Impression: Atypical pneumonia ER Course Hospital Course 66-year-old female presents to ED complaining of productive cough Differential diagnoses include: URI, bronchitis, asthma/COPD, pneumonia Clinical course Patient placed on stretcher. After initial history, physical exam reveals an elderly female in no acute distress. Bilateral TM unremarkable. No pharyngeal erythema. No tonsillar exudates. No lymphadenopathy. lungs crackles noted I ordered labs, IV fluids, nebs, EKG, chest x-ray. Labs reviewed-no leukocytosis, hemoglobin/hematocrit stable, electrolytes okay, trop negative, lactat ok Chest x-ray shows L lower atelectasis. no acute infiltrate identified EKG- NSR, no acute changes interpretd by me On reassessment patient states he feels better. Per curb-65 criteria, patient does not require admission. Patient can be safely discharged to home with outpatient therapy. Patient agrees with plan. Diagnosis - atypical pneumonia Stable and discharged home with prescriptions for albuterol, prednisone, Levaquin. Instructed to followup with PMD. Return to ED if symptoms recur or worsen Labs Test 02/01/17 01:02 White Blood Count 7.8 K/UL (4.8-10.8) Red Blood Count 4.39 M/UL (4.20-5.40) Hemoglobin 10.4 G/DL (12.0-16.0) Hematocrit 34.9 % (37.0-47.0) Mean Corpuscular Volume 80 FL (80-99) Mean Corpuscular Hemoglobin 23.6 PG (27.0-31.0) Mean Corpuscular Hemoglobin Concent 29.7 G/DL (32.0-36.0) Red Cell Distribution Width 13.3 % (11.6-14.8) Platelet Count 249 K/UL (150-450) Mean Platelet Volume 9.0 FL (6.5-10.1) Neutrophils (%) (Auto) 61.7 % (45.0-75.0) Lymphocytes (%) (Auto) 29.6 % (20.0-45.0) Monocytes (%) (Auto) 2.7 % (1.0-10.0) Eosinophils (%) (Auto) 5.4 % (0.0-3.0) Basophils (%) (Auto) 0.6 % (0.0-2.0) Sodium Level 143 mEQ/L (135-145) Potassium Level 3.6 mEQ/L (3.4-4.9) Chloride Level 102 mEQ/L (98-107) Carbon Dioxide Level 33 mEQ/L (20-30) Anion Gap 8 (5-15) Blood Urea Nitrogen 5 mg/dL (7-23) Creatinine 0.5 mg/dL (0.5-0.9) Estimat Glomerular Filtration Rate > 60 mL/min (>60) Glucose Level 95 mg/dL (74-106) Lactic Acid Level 1.00 mmol/L (0.66-2.22) Calcium Level 8.7 mg/dL (8.6-10.2) Total Bilirubin < 0.2 mg/dL (0.0-1.2) Aspartate Amino Transf (AST/SGOT) 16 U/L (5-40) Alanine Aminotransferase (ALT/SGPT) 10 U/L (3-33) Alkaline Phosphatase 113 U/L (35-104) Total Creatine Kinase 67 U/L (26-140) Creatine Kinase MB < 1.5 ng/mL (< 3.8) Creatine Kinase MB Relative Index 2.2 Troponin I < 0.30 ng/mL (<=0.30) Pro-B-Type Natriuretic Peptide 133 pg/mL (0-125) Total Protein 6.7 g/dL (6.6-8.7) Albumin 3.5 g/dL (3.5-5.2) Globulin 3.2 g/dL Albumin/Globulin Ratio 1.0 (1.0-2.7) Hematology Test 02/01/17 01:02 White Blood Count 7.8 K/UL (4.8-10.8) Red Blood Count 4.39 M/UL (4.20-5.40) Hemoglobin 10.4 G/DL (12.0-16.0) L Hematocrit 34.9 % (37.0-47.0) L Mean Corpuscular Volume 80 FL (80-99) Mean Corpuscular Hemoglobin 23.6 PG (27.0-31.0) L Mean Corpuscular Hemoglobin Concent 29.7 G/DL (32.0-36.0) L Red Cell Distribution Width 13.3 % (11.6-14.8) Platelet Count 249 K/UL (150-450) Mean Platelet Volume 9.0 FL (6.5-10.1) Neutrophils (%) (Auto) 61.7 % (45.0-75.0) Lymphocytes (%) (Auto) 29.6 % (20.0-45.0) Monocytes (%) (Auto) 2.7 % (1.0-10.0) Eosinophils (%) (Auto) 5.4 % (0.0-3.0) H Basophils (%) (Auto) 0.6 % (0.0-2.0) Chemistry Test 02/01/17 01:02 Sodium Level 143 mEQ/L (135-145) Potassium Level 3.6 mEQ/L (3.4-4.9) Chloride Level 102 mEQ/L (98-107) Carbon Dioxide Level 33 mEQ/L (20-30) H Anion Gap 8 (5-15) Blood Urea Nitrogen 5 mg/dL (7-23) L Creatinine 0.5 mg/dL (0.5-0.9) Estimat Glomerular Filtration Rate > 60 mL/min (>60) Glucose Level 95 mg/dL (74-106) Lactic Acid Level 1.00 mmol/L (0.66-2.22) Calcium Level 8.7 mg/dL (8.6-10.2) Total Bilirubin < 0.2 mg/dL (0.0-1.2) Aspartate Amino Transf (AST/SGOT) 16 U/L (5-40) Alanine Aminotransferase (ALT/SGPT) 10 U/L (3-33) Alkaline Phosphatase 113 U/L (35-104) H Total Creatine Kinase 67 U/L (26-140) Creatine Kinase MB < 1.5 ng/mL (< 3.8) Creatine Kinase MB Relative Index 2.2 Troponin I < 0.30 ng/mL (<=0.30) Pro-B-Type Natriuretic Peptide 133 pg/mL (0-125) H Total Protein 6.7 g/dL (6.6-8.7) Albumin 3.5 g/dL (3.5-5.2) Globulin 3.2 g/dL Albumin/Globulin Ratio 1.0 (1.0-2.7) EKG Diagnostic Results Rate: normal Rhythm: NSR ST Segments: no acute changes ASA given to the pt in ED: No Rhythm Strip Diag. Results EP Interpretation: yes Rhythm: NSR, no PVC's, no ectopy Chest X-Ray Diagnostic Results Chest X-Ray Diagnostic Results : Chest X-Ray Ordered: Yes # of Views/Limited/Complete: 1 View Indication: Shortness of Breath EP Interpretation: Yes Interpretation: no consolidation, no effusion, no pneumothorax, no acute cardiopulmonary disease, other - atelectasis L lung base Impression: Other - atelectasis Interpreting ER Provider: electronically signed by Allen Lara MD Last Vital Signs Date Time Temp Pulse Resp B/P Pulse Ox O2 Delivery O2 Flow Rate FiO2 02/01/17 00:58 92 20 100 Room Air 02/01/17 00:14 98.1 139/84 Status: improved Disposition: HOME, SELF-CARE Condition: Stable Scripts Prednisone* (PREDNISONE*) 20 Mg Tablet 40 MG ORAL DAILY, #10 TAB Prov: ALLEN LARA M.D. 02/01/17 Albuterol Sulfate* (ALBUTEROL SULFATE MDI*) 8.5 Gm Hfa.aer.ad 2 PUFF INH Q4H Y for cough/wheezing, #1 EA 0 Refills Prov: ALLEN LARA M.D. 02/01/17 Levofloxacin* (LEVAQUIN*) 750 Mg Tablet 750 MG ORAL DAILY for 5 Days, TAB Prov: ALLEN LARA M.D. 02/01/17 Patient Instructions: Community-Acquired Pneumonia, Adult, [id number] ALLEN LARA M.D. Feb 01, 2017 03:39
[2017-02-01 04:00] VITALS: BP 126/68
--- NOTE | 2017-02-01 12:06 | Diagnostic Imaging Report ---
Indication: SOB Technique: One view of the chest Comparison: 01/01/2017 Findings: There is atelectasis in the left lung base. There has been interim resolution of previously demonstrated left basilar consolidation. Lungs and pleural spaces are otherwise clear A linear metallic opacity overlies the right lung base, suspect extrinsic to the patient the heart is upper limits of normal in size. Impression: No acute process
== END 2017-02-01 02:30 | disposition short-term general hospital (02) ==
LOC: EMR 00:56
DX: J18.9 Pneumonia, unspecified organism (principal); J45.909 Unspecified asthma, uncomplicated; Z88.6 Allergy status to analgesic agent; Z91.012 Allergy to eggs; Z91.011 Allergy to milk products; Z91.041 Radiographic dye allergy status; Z91.040 Latex allergy status; Z88.0 Allergy status to penicillin; Z91.013 Allergy to seafood; Z88.2 Allergy status to sulfonamides; Z91.018 Allergy to other foods
CPT/HCPCS: 36415; 71010; 80053; 82550; 82553; 83605; 83880; 84484; 85025; 87040; 93005; 94640; 94664; 96374

== ENCOUNTER 2017-04-03 19:35 | Emergency (ER) | payer MEDICARE, MEDICAID ==
[~2017-04-03] VITALS: Ht 170.2 cm; Wt 59.0 kg
[~2017-04-03 19:35] MED LIST changes: +ADVAIR 250-501 EACH INH; +BUSPIRONE HCL5 M2 ORAL; +GABAPENTIN400 MG ORAL; +VITAMIN B122500 MCG PO
[2017-04-03 19:55] VITALS: BP 156/95
--- NOTE | 2017-04-03 20:23 | Emergency Room Report ---
History of Present Illness General Chief Complaint: Pain Present Illness HPI 66-year-old female presents to the emergency department complaining of toothache in the right lower jaw that is 10 out of 10 in severity x4 days. Patient has no pain with her dentist tomorrow. Patient also reports muscle cramping and possible dehydration due to inability to eat because of pain from her tooth in addition to diarrhea x1 week. Patient reports cramping in the legs , back and forearms. Patient denies taking diuretic medication. Patient reports history of diabetes she states she's been attempting to stay hydrated however due to moderate diarrhea she is having difficulty. Patient denies blood in the stool or black tarry stools. Patient denies abdominal pain she reports some cramping and flatulence prior to bowel movements. Denies fevers or chills, recent travel or ill contacts. Denies CP, Palpitations, LOC, AMS, dizziness, Changes in Vision, Sensation, paresthesias, or a sudden severe headache. Allergies: Coded Allergies: IBUPROFEN (Verified Allergy, Severe, HIVES, 12/31/16) Dairy (Unverified Allergy, Unknown, 12/31/16) EGG (Unverified Allergy, Unknown, 12/31/16) IODINE (Verified Allergy, Unknown, 12/31/16) LATEX (Unverified Allergy, Unknown, 01/27/16) [place] (Unverified Allergy, Unknown, 01/27/16) PEACH (Unverified Allergy, Unknown, 12/31/16) PENICILLINS (Verified Allergy, Unknown, 12/31/16) PINEAPPLE (Unverified Allergy, Unknown, HIVES, SWELLING, 12/31/16) STRAWBERRY (Unverified Allergy, Unknown, Hives, 12/31/16) SULFA (SULFONAMIDE ANTIBIOTICS) (Verified Allergy, Unknown, 12/31/16) TRAMADOL (Verified Allergy, Unknown, 12/31/16) PER RN Uncoded Allergies: SEAFOOD (Allergy, Severe, SWELLING, 12/12/11) Patient History Past Medical History: see triage record Past Surgical History: none Now: No Immunizations: UTD Reviewed Nursing Documentation: PMH: Agreed, PSxH: Agreed Nursing Documentation-PMH Hx Hypertension: No Hx Pacemaker: No Hx Asthma: Yes Hx Diabetes: No Hx Cancer: No Hx Gastrointestinal Problems: No Hx Dialysis: No Hx Neurological Problems: No Hx Seizures: No Hx Headaches: Yes Review of Systems All Other Systems: negative except mentioned in HPI Physical Exam Vital Signs Date Time Temp Pulse Resp B/P (MAP) Pulse Ox O2 Delivery O2 Flow Rate FiO2 04/03/17 19:50 98.1 84 16 156/95 98 Room Air Sp02 EP Interpretation: reviewed, normal General Appearance: no apparent distress, alert, GCS 15, non-toxic Head: normocephalic, atraumatic Eyes: bilateral eye normal inspection, bilateral eye PERRL ENT: hearing grossly normal, normal pharynx, no angioedema, normal voice, uvula midline, moist mucus membranes, other - ttp, erythema to the gum line about tooth numbers 27 and 28, tooth 28 is cracked, both teeth have obvious carries, no palpable fluctuance to the gum line, over all very poor dentition with multiple missing or damaged teeth. Neck: full range of motion Respiratory: lungs clear, normal breath sounds, speaking full sentences Cardiovascular #1: regular rate, rhythm Gastrointestinal: normal bowel sounds, non tender, soft, no guarding, no rebound Rectal: deferred Genitourinary: normal inspection, CVA tenderness (L) Musculoskeletal: back normal, gait/station normal, normal range of motion, non- tender, no calf tenderness Neurologic: alert, oriented x3, responsive, motor strength/tone normal, sensory intact, normal gait, speech normal Psychiatric: judgement/insight normal, memory normal, mood/affect normal Skin: normal color, no rash, warm/dry, well hydrated Lymphatic: no adenopathy Medical Decision Making PA Attestation Dr. Carrington is my supervising Physician whom patient management has been discussed with. Diagnostic Impression: Primary Impression: Diarrhea Qualified Codes: R19.7 - Diarrhea, unspecified Additional Impressions: Yeast infection Muscle cramps Tooth infection ER Course 66-year-old female presents to the emergency department complaining of toothache in the right lower jaw that is 10 out of 10 in severity x4 days. Patient has no pain with her dentist tomorrow. Patient also reports muscle cramping and possible dehydration due to inability to eat because of pain from her tooth in addition to diarrhea x1 week. Patient reports cramping in the legs , back and forearms. Patient denies taking diuretic medication. Patient reports history of diabetes she states she's been attempting to stay hydrated however due to moderate diarrhea she is having difficulty. Patient denies blood in the stool or black tarry stools. Patient denies abdominal pain she reports some cramping and flatulence prior to bowel movements. Denies fevers or chills, recent travel or ill contacts. Denies CP, Palpitations, LOC, AMS, dizziness, Changes in Vision, Sensation, paresthesias, or a sudden severe headache. Ddx considered but are not limited to cellulitis, dental abscess, orbital cellulitis, d/l tooth, dental pain. trigeminal neuralgia, UTI, pyelo, kidney stone, electrolyte imbalance just to name a few. Vital signs: elevated BP otherwise VS are WNL, pt. is afebrile H&PE are most consistent with dental infection, mild dehydration, enteritis -- - will hydrate with NS, and check electrolytes. pt. will be d/c with oral abx unless significant abnormality in lab work. ORDERS: -UA: remarkable only for yeast, no wbc's, no occult blood or rbcs to suggest infection or stone. -BMP: unremarkable, electrolytes ok -CBC: unremarkable ED INTERVENTIONS: -1000cc NS -Tylenol # 3 -Ativan 1mg IV -Pt. given strict outpatient follow up plan, oral abx, medication to slow down bowel movements, and ED return precautions with worsening or new symptoms. Pt to see her Dentist tomorrow. DISCHARGE: At this time pt. is stable for d/c to home. Will provide printed patient care instructions, and any necessary prescriptions. Care plan and follow up instructions have been discussed with the patient prior to discharge. Labs Test 04/03/17 21:15 White Blood Count 7.3 K/UL (4.8-10.8) Red Blood Count 5.12 M/UL (4.20-5.40) Hemoglobin 11.6 G/DL (12.0-16.0) Hematocrit 39.5 % (37.0-47.0) Mean Corpuscular Volume 77 FL (80-99) Mean Corpuscular Hemoglobin 22.7 PG (27.0-31.0) Mean Corpuscular Hemoglobin Concent 29.4 G/DL (32.0-36.0) Red Cell Distribution Width 14.2 % (11.6-14.8) Platelet Count 329 K/UL (150-450) Mean Platelet Volume 9.1 FL (6.5-10.1) Neutrophils (%) (Auto) 50.0 % (45.0-75.0) Lymphocytes (%) (Auto) 44.0 % (20.0-45.0) Monocytes (%) (Auto) 3.3 % (1.0-10.0) Eosinophils (%) (Auto) 1.8 % (0.0-3.0) Basophils (%) (Auto) 0.9 % (0.0-2.0) Urine Color Pale yellow Urine Appearance Clear Urine pH 7 (4.5-8.0) Urine Specific [place] 1.005 (1.005-1.035) Urine Protein Negative (NEGATIVE) Urine Glucose (UA) Negative (NEGATIVE) Urine Ketones Negative (NEGATIVE) Urine Occult Blood Negative (NEGATIVE) Urine Nitrite Negative (NEGATIVE) Urine Bilirubin Negative (NEGATIVE) Urine Urobilinogen Normal MG/DL (0.0-1.0) Urine Leukocyte Esterase 1+ (NEGATIVE) Urine RBC 0-2 /HPF (0 - 2) Urine WBC 2-4 /HPF (0 - 2) Urine Squamous Epithelial Cells Few /LPF (NONE/OCC) Urine Bacteria Few /HPF (NONE) Urine Yeast Occasional /HPF (NONE) Sodium Level 142 mEQ/L (135-145) Potassium Level 4.3 mEQ/L (3.4-4.9) Chloride Level 100 mEQ/L (98-107) Carbon Dioxide Level 29 mEQ/L (20-30) Anion Gap 13 (5-15) Blood Urea Nitrogen 4 mg/dL (7-23) Creatinine 0.6 mg/dL (0.5-0.9) Estimat Glomerular Filtration Rate > 60 mL/min (>60) Glucose Level 106 mg/dL (74-106) Calcium Level 9.0 mg/dL (8.6-10.2) Last Vital Signs Date Time Temp Pulse Resp B/P (MAP) Pulse Ox O2 Delivery O2 Flow Rate FiO2 04/03/17 19:55 98.1 82 16 156/95 98 Room Air Disposition: HOME, SELF-CARE Condition: Stable Scripts Miconazole Nitrate (MONISTAT 3) 24 Gm Cmb.pf.crm 24 GM VG DAILY for 3 Days, #24 GM Prov: Zamzam Waddell P.Laurie 04/03/17 Cyclobenzaprine Hcl* (FLEXERIL*) 10 Mg Tablet 10 MG ORAL THREE TIMES A DAY for 7 Days, #21 TAB Prov: Zamzam Waddell 04/03/17 Dicyclomine Hcl* (BENTYL*) 10 Mg Capsule 10 MG ORAL FOUR TIMES A DAY for 2 Days, #8 CAP Prov: Zamzam Waddell 04/03/17 Azithromycin* (ZITHROMAX*) 250 Mg Tablet 250 MG ORAL DAILY for 5 Days, #6 TAB 0 Refills Prov: Zamzam Waddell 04/03/17 Patient Instructions: Diarrhea, Adult, [id number], Muscle Cramps and Spasms, [id number], Vaginal Yeast Infection, Adult Additional Instructions: Take medications as directed. Follow up with a Primary Care Provider 48 HOURS, even if your symptoms have resolved. --Please review list of primary care clinics, if you do not already have a primary care provider Return sooner to ED if new symptoms occur, or current symptoms become worse. Do not drink alcohol, drive, or operate heavy machinery while taking flexeril as this may cause drowsiness. - Please note that this Emergency Department Report was dictated using [employer] associate technology software, occasionally this can lead to erroneous entry secondary to interpretation by the dictation equipment. Zamzam Waddell Apr 03, 2017 20:23
[2017-04-03] MEDS ORDERED: Tylenol #3 tab (300mg/30mg) ORAL ONE (20:30)
[2017-04-03 21:41] LABS: ANION GAP 13 (5-15); CARBON DIOXIDE 29 mEQ/L (20-30); CHLORIDE 100 mEQ/L (98-107); CREATININE 0.6 mg/dL (0.5-0.9); GLOMERULAR FILTRATION RATE > 60 mL/min (>60); HEMOLYSIS 66; POTASSIUM 4.3 mEQ/L (3.4-4.9); SODIUM 142 mEQ/L (135-145)
[2017-04-03 21:44] LABS: BASOPHILS % (AUTO) 0.9 % (0.0-2.0); EOSINOPHILS % (AUTO) 1.8 % (0.0-3.0); MEAN CORPUSCULAR HEMOGLOBIN 22.7 PG (27.0-31.0); MEAN CORPUSCULAR HGB CONC 29.4 G/DL (32.0-36.0); MEAN CORPUSCULAR VOLUME 77 FL (80-99); MEAN PLATELET VOLUME 9.1 FL (6.5-10.1); MONOCYTES % (AUTO) 3.3 % (1.0-10.0); PLATELET COUNT 329 K/UL (150-450); RED BLOOD COUNT 5.12 M/UL (4.20-5.40); RED CELL DISTRIBUTION WIDTH 14.2 % (11.6-14.8); WHITE BLOOD COUNT 7.3 K/UL (4.8-10.8)
[2017-04-03 22:08] LABS: APPEARANCE,URINE CLEAR; KETONES,URINE NEGATIVE (NEGATIVE); LEUKOCYTE ESTERASE ,URINE 1+ (NEGATIVE); NITRITE,URINE NEGATIVE (NEGATIVE); PH,URINE 7 (4.5-8.0); PROTEIN,URINE NEGATIVE (NEGATIVE); UROBILINOGEN,URINE NORMAL MG/DL (0.0-1.0)
[2017-04-03 22:16] LABS: RBC,URINE 0-2 /HPF (0 - 2)
[2017-04-03 22:17] LABS: BACTERIA,URINE FEW /HPF; SQUAMOUS EPITHELIAL CELL,UR FEW /LPF (NONE/OCC); YEAST,URINE OCCASIONAL /HPF
[2017-04-03] MEDS ORDERED: LORazepam Inj 2mg/ml 1ml IV ONE (22:30)
[2017-04-03] MEDS ORDERED: BENTYL10 MG ORAL (22:38)
[2017-04-03] MEDS ORDERED: AZITHROMYCIN250 MG ORAL (22:38)
[2017-04-03] MEDS ORDERED: CYCLOBENZAPRINE10 MG ORAL (22:38)
[2017-04-03] MEDS ORDERED: MONISTAT 324 GM VG (22:38)
[2017-04-03] MEDS ORDERED: Dicyclomine HCl 10mg/5ml oral soln ORAL ONE (22:45)
[2017-04-03 23:35] VITALS: BP 134/88
== END 2017-04-03 23:35 | disposition home or self-care (01) ==
LOC: EMR 20:12
DX: R19.7 Diarrhea, unspecified (principal); B37.9 Candidiasis, unspecified; R25.2 Cramp and spasm; K04.7 Periapical abscess without sinus; E11.9 Type 2 diabetes mellitus without complications; Z88.6 Allergy status to analgesic agent; Z88.0 Allergy status to penicillin; Z88.2 Allergy status to sulfonamides; Z91.012 Allergy to eggs; Z91.011 Allergy to milk products; Z91.013 Allergy to seafood; Z91.041 Radiographic dye allergy status; Z91.040 Latex allergy status; Z91.018 Allergy to other foods
CPT/HCPCS: 36415; 80048; 81003; 85025; 87086; 87181; 96361; 96374; 99284

== ENCOUNTER 2017-05-01 10:03 | Emergency (ER) | payer MEDICARE, MEDICAID ==
[~2017-05-01] VITALS: Ht 170.2 cm; Wt 60.3 kg
[~2017-05-01 10:03] MED LIST changes: +AZITHROMYCIN250 MG ORAL; +MONISTAT 324 GM VG
[2017-05-01 10:17] VITALS: BP 137/87
[2017-05-01] MEDS ORDERED: Sodium Chloride 500ML 500 ML IVPB ONE (11:00)
--- NOTE | 2017-05-01 11:02 | Emergency Room Report ---
History of Present Illness General Chief Complaint: Pain Source: Patient Present Illness HPI 67-year-old female history of rheumatoid arthritis, hypertension, presenting with dental pain and body aches. Patient states that she had a right lower dental abscess, finished taking clindamycin 3 days ago, has an appointment to see her dentist next week. Also complaining of generalized body aches and joint pain, states that she is not on medication for rheumatoid arthritis, was on gabapentin but states that it was making her dizzy. Has not seen her primary care doctor in over 2 months. Denies any fever chills nausea vomiting diarrhea. Denies any abdominal pain. Upon review of chart, patient has been seen emergency room for multiple complaints, as well as chronic pain Allergies: Coded Allergies: IBUPROFEN (Verified Allergy, Severe, HIVES, 12/31/16) Dairy (Unverified Allergy, Unknown, 12/31/16) EGG (Unverified Allergy, Unknown, 12/31/16) IODINE (Verified Allergy, Unknown, 12/31/16) LATEX (Unverified Allergy, Unknown, 01/27/16) [place] (Unverified Allergy, Unknown, 01/27/16) PEACH (Unverified Allergy, Unknown, 12/31/16) PENICILLINS (Verified Allergy, Unknown, 12/31/16) PINEAPPLE (Unverified Allergy, Unknown, HIVES, SWELLING, 12/31/16) STRAWBERRY (Unverified Allergy, Unknown, Hives, 12/31/16) SULFA (SULFONAMIDE ANTIBIOTICS) (Verified Allergy, Unknown, 12/31/16) TRAMADOL (Verified Allergy, Unknown, 12/31/16) PER RN Uncoded Allergies: SEAFOOD (Allergy, Severe, SWELLING, 12/12/11) Patient History Past Medical History: see triage record Past Surgical History: none Pertinent Family History: none Reviewed Nursing Documentation: PMH: Agreed, PSxH: Agreed Nursing Documentation-PMH Past Medical History: No History, Except For Hx Hypertension: No Hx Pacemaker: No Hx Asthma: Yes Hx Diabetes: No Hx Cancer: No Hx Gastrointestinal Problems: No Hx Dialysis: No Hx Neurological Problems: No Hx Seizures: No Hx Headaches: Yes Review of Systems All Other Systems: negative except mentioned in HPI Physical Exam Vital Signs Date Time Temp Pulse Resp B/P (MAP) Pulse Ox O2 Delivery O2 Flow Rate FiO2 10/11/17 10:07 98.1 99 18 137/87 97 Room Air Sp02 EP Interpretation: reviewed, normal General Appearance: alert, GCS 15, non-toxic, other - Tired appearing female, calm and cooperative, does not appear to be in pain Head: normocephalic, atraumatic Eyes: bilateral eye normal inspection, bilateral eye PERRL, bilateral eye EOMI ENT: normal voice, moist mucus membranes, other - Poor dentition, right thumb mild erythema, tender to palpation, no fluctuance no purulent drainage Neck: normal inspection, full range of motion, supple Respiratory: normal inspection, lungs clear, normal breath sounds, no respiratory distress, no retraction, no wheezing, speaking full sentences, chest symmetrical Cardiovascular #1: normal inspection, regular rate, rhythm, no edema, normal capillary refill Cardiovascular #2: 2+ radial (R), 2+ radial (L) Gastrointestinal: normal inspection, non tender, soft, non-distended, no guarding Musculoskeletal: normal inspection, back normal, normal range of motion, non- tender Neurologic: normal inspection, alert, oriented x3, responsive, motor strength/ tone normal, sensory intact, normal gait, speech normal Psychiatric: normal inspection, judgement/insight normal, memory normal Skin: normal inspection, normal color, no rash, warm/dry, well hydrated, normal turgor Medical Decision Making Diagnostic Impression: Primary Impression: Chronic pain Additional Impression: Pain, dental ER Course 67-year-old female with dental pain, myalgias DDX: Dental pain likely secondary to healing dental abscess cellulitis, patient already finished course of antibiotics, will give Tylenol for pain, already has followup with dentist Body pain, aches: For a few weeks, chronic in nature, osteoarthritis versus rheumatoid arthritis Plan: Tylenol, basic labs ER course: Patient has remained stable during ED stay. Ambulatory conversing with daughter, not in pain Requesting rx tylenol 3/norco for pain, I told patient for her chronic pain she must get these rx from her pmd or pain specialist. Patient not in pain, has been NAD during ED stay also observed by nursing staff. Disposition: Patient is to be discharged to home. Patient is instructed to follow up with their primary care doctor within 5 days. Patient is instructed to follow up with dentist within 3 days. Strict return precautions discussed with patient such as fever, chills, worsening/severe pain, nausea, vomiting, which may indicate severe illness. Patient verbalizes understanding and agrees with plan. Please note that this Emergency Department Report was dictated using [employer] senior officer technology software, occasionally this can lead to erroneous entry secondary to interpretation by the dictation equipment Laboratory Tests Test 05/01/17 11:30 05/01/17 13:00 White Blood Count 5.3 K/UL (4.8-10.8) Red Blood Count 4.78 M/UL (4.20-5.40) Hemoglobin 11.2 G/DL (12.0-16.0) L Hematocrit 37.1 % (37.0-47.0) Mean Corpuscular Volume 78 FL (80-99) L Mean Corpuscular Hemoglobin 23.4 PG (27.0-31.0) L Mean Corpuscular Hemoglobin Concent 30.1 G/DL (32.0-36.0) L Red Cell Distribution Width 13.8 % (11.6-14.8) Platelet Count 232 K/UL (150-450) Mean Platelet Volume 10.2 FL (6.5-10.1) H Neutrophils (%) (Auto) 66.2 % (45.0-75.0) Lymphocytes (%) (Auto) 24.5 % (20.0-45.0) Monocytes (%) (Auto) 4.5 % (1.0-10.0) Eosinophils (%) (Auto) 3.6 % (0.0-3.0) H Basophils (%) (Auto) 1.3 % (0.0-2.0) Sodium Level 138 MMOL/L (136-145) Potassium Level 3.9 MMOL/L (3.5-5.1) Chloride Level 102 MMOL/L (98-107) Carbon Dioxide Level 29 MMOL/L (21-32) Anion Gap 7 (5-15) Blood Urea Nitrogen 6 mg/dL (7-18) L Creatinine 0.6 MG/DL (0.55-1.30) Estimate Glomerular Filtration Rate > 60 mL/min (>60) Glucose Level 137 MG/DL (74-106) H Calcium Level 8.9 MG/DL (8.5-10.1) Total Bilirubin 0.2 MG/DL (0.2-1.0) Aspartate Amino Transferase (AST) 21 U/L (15-37) Alanine Aminotransferase (ALT) 16 U/L (12-78) Alkaline Phosphatase 99 U/L (46-116) Total Protein 7.0 G/DL (6.4-8.2) Albumin 3.1 G/DL (3.4-5.0) L Globulin 3.9 g/dL Albumin/Globulin Ratio 0.8 (1.0-2.7) L Urine Color Pale yellow Urine Appearance Clear Urine pH 6.5 (4.5-8.0) Urine Specific [place] 1.010 (1.005-1.035) Urine Protein Negative (NEGATIVE) Urine Glucose (UA) Negative (NEGATIVE) Urine Ketones Negative (NEGATIVE) Urine Occult Blood Negative (NEGATIVE) Urine Nitrite Negative (NEGATIVE) Urine Bilirubin Negative (NEGATIVE) Urine Urobilinogen Normal MG/DL (0.0-1.0) Urine Leukocyte Esterase Negative (NEGATIVE) Last Vital Signs Date Time Temp Pulse Resp B/P (MAP) Pulse Ox O2 Delivery O2 Flow Rate FiO2 05/01/17 10:17 18 137/87 97 Room Air 05/01/17 10:07 98.1 99 Disposition: HOME, SELF-CARE Condition: Stable Referrals: NON PHYSICIAN (PCP) Skip Quinones M.D. May 01, 2017 11:02
[2017-05-01 11:49] LABS: BASOPHILS % (AUTO) 1.3 % (0.0-2.0); EOSINOPHILS % (AUTO) 3.6 % (0.0-3.0); LYMPHOCYTES % (AUTO) 24.5 % (20.0-45.0); MEAN CORPUSCULAR HEMOGLOBIN 23.4 PG (27.0-31.0); MEAN CORPUSCULAR HGB CONC 30.1 G/DL (32.0-36.0); MEAN CORPUSCULAR VOLUME 78 FL (80-99); MEAN PLATELET VOLUME 10.2 FL (6.5-10.1); MONOCYTES % (AUTO) 4.5 % (1.0-10.0); NEUTROPHILS % (AUTO) 66.2 % (45.0-75.0); PLATELET COUNT 232 K/UL (150-450); RED BLOOD COUNT 4.78 M/UL (4.20-5.40); RED CELL DISTRIBUTION WIDTH 13.8 % (11.6-14.8); WHITE BLOOD COUNT 5.3 K/UL (4.8-10.8)
[2017-05-01 12:23] LABS: ALANINE AMINOTRANSFERASE 16 U/L (12-78); ALBUMIN/GLOBULIN RATIO 0.8 (1.0-2.7); ANION GAP 7 (5-15); ASPARTATE AMINO TRANSFERASE 21 U/L (15-37); CALCIUM 8.9 MG/DL (8.5-10.1); CARBON DIOXIDE 29 MMOL/L (21-32); CHLORIDE 102 MMOL/L (98-107); CREATININE 0.6 MG/DL (0.55-1.30); GLOMERULAR FILTRATION RATE > 60 mL/min (>60); POTASSIUM 3.9 MMOL/L (3.5-5.1); SODIUM 138 MMOL/L (136-145)
[2017-05-01 13:11] LABS: APPEARANCE,URINE CLEAR; KETONES,URINE NEGATIVE (NEGATIVE); LEUKOCYTE ESTERASE ,URINE NEGATIVE (NEGATIVE); NITRITE,URINE NEGATIVE (NEGATIVE); PH,URINE 6.5 (4.5-8.0); PROTEIN,URINE NEGATIVE (NEGATIVE); UROBILINOGEN,URINE NORMAL MG/DL (0.0-1.0)
[2017-05-01 13:20] VITALS: BP 110/67
== END 2017-05-01 13:26 | disposition home or self-care (01) ==
LOC: EMR 10:36
DX: G89.29 Other chronic pain (principal); K08.89 Other specified disorders of teeth and supporting structures; R52 Pain, unspecified; Z88.6 Allergy status to analgesic agent; Z88.5 Allergy status to narcotic agent; Z88.0 Allergy status to penicillin; R51 Headache; J45.909 Unspecified asthma, uncomplicated
CPT/HCPCS: 36415; 80053; 81003; 85025; 96360; 96361; 99284; J7040

== ENCOUNTER 2017-05-15 15:41 | Emergency (ER) | payer MEDICARE, MEDICAID ==
[~2017-05-15] VITALS: Ht 170.2 cm; Wt 69.9 kg
[2017-05-15] MEDS ORDERED: ACETAMINOPHEN-1 EAC1 ORAL (15:52)
[2017-05-15] MEDS ORDERED: oxyCODONE HCL/Acetaminophen 5/325mg ORAL ONE (16:15)
--- NOTE | 2017-05-15 16:47 | Emergency Room Report ---
History of Present Illness General Chief Complaint: Pain Source: Patient Present Illness HPI 67 YO Female presents to the ED c/o : Tooth pain x 3 days Pt. had tooth extraction on Saturday. pt. states prescribed abx and Tylenol #3 are not helping, and her pain is 10/10 in the right lower jaw, and the left upper jaw/gum line, no fevers, chills, bleeding, or pus. pt. states she has an appt. to see the dentist tomorrow. denies swollen lymph nodes, neck or throat pain. Pt. is requesting injection pain medication. Denies CP, Palpitations, LOC, AMS, dizziness, Changes in Vision, Sensation, paresthesias, or a sudden severe headache. Allergies: Coded Allergies: IBUPROFEN (Verified Allergy, Severe, HIVES, 12/31/16) Dairy (Unverified Allergy, Unknown, 12/31/16) EGG (Unverified Allergy, Unknown, 12/31/16) IODINE (Verified Allergy, Unknown, 12/31/16) LATEX (Unverified Allergy, Unknown, 01/27/16) [place] (Unverified Allergy, Unknown, 01/27/16) PEACH (Unverified Allergy, Unknown, 12/31/16) PENICILLINS (Verified Allergy, Unknown, 12/31/16) PINEAPPLE (Unverified Allergy, Unknown, HIVES, SWELLING, 12/31/16) STRAWBERRY (Unverified Allergy, Unknown, Hives, 12/31/16) SULFA (SULFONAMIDE ANTIBIOTICS) (Verified Allergy, Unknown, 12/31/16) TRAMADOL (Verified Allergy, Unknown, 12/31/16) PER RN Uncoded Allergies: SEAFOOD (Allergy, Severe, SWELLING, 12/12/11) Patient History Past Medical History: see triage record Past Surgical History: none Pertinent Family History: none Last Menstrual Period: Post Now: No Reviewed Nursing Documentation: PMH: Agreed, PSxH: Agreed Nursing Documentation-PMH Hx Cardiac Problems: Yes - Rheumatoid Arthritis Hx Hypertension: No Hx Pacemaker: No Hx Asthma: Yes Hx Diabetes: Yes Hx Cancer: No Hx Gastrointestinal Problems: No Hx Dialysis: No Hx Neurological Problems: No Hx Cerebrovascular Accident: Yes - Stroke 9 yrs ago. Hx Seizures: No Hx Headaches: Yes Review of Systems All Other Systems: negative except mentioned in HPI Physical Exam Vital Signs Date Time Temp Pulse Resp B/P (MAP) Pulse Ox O2 Delivery O2 Flow Rate FiO2 05/15/17 15:46 98.2 89 19 146/79 98 Room Air Sp02 EP Interpretation: reviewed, normal General Appearance: no apparent distress, alert, GCS 15, non-toxic Head: normocephalic, atraumatic Eyes: bilateral eye normal inspection, bilateral eye PERRL ENT: hearing grossly normal, normal pharynx, no angioedema, normal voice, uvula midline, moist mucus membranes, other - poor dentition, only one tooth is remaining in the right upper jaw. there are multiple sockets noted without obvious clots in the left upper gum line and the right lower gumline, no gum erythema, no palpable fluctuance of the gum line, no oral lesions. Neck: full range of motion Respiratory: lungs clear, normal breath sounds, speaking full sentences Cardiovascular #1: regular rate, rhythm Musculoskeletal: back normal, gait/station normal, normal range of motion, non- tender Neurologic: alert, oriented x3, responsive, motor strength/tone normal, sensory intact, speech normal Psychiatric: judgement/insight normal, memory normal, mood/affect normal, no suicidal/homicidal ideation Skin: normal color, no rash, warm/dry, well hydrated Lymphatic: no adenopathy Medical Decision Making PA Attestation Dr. Quinones is my supervising Physician whom patient management has been discussed with. Diagnostic Impression: Primary Impression: Pain, dental Additional Impressions: Opioid dependence Qualified Codes: F11.20 - Opioid dependence, uncomplicated Drug-seeking behavior ER Course 67 YO Female presents to the ED c/o : Tooth pain x 3 days Pt. had tooth extraction on Saturday. pt. states prescribed abx and Tylenol #3 are not helping, and her pain is 10/10 in the right lower jaw, and the left upper jaw/gum line, no fevers, chills, bleeding, or pus. pt. states she has an appt. to see the dentist tomorrow. denies swollen lymph nodes, neck or throat pain. Pt. is requesting injection pain medication. Denies CP, Palpitations, LOC, AMS, dizziness, Changes in Vision, Sensation, paresthesias, or a sudden severe headache. Ddx considered but are not limited to:tooth abscess, tooth avulsion, SHIPPING SUPPORT, ludwigs angina, cellulitis Vital signs: are WNL, pt. is afebrile H&PE are most consistent with: dental pain several days post extraction in a pt. with opiate dependence. Dry socket is of suspicion, however more consistent with need for furthur dental procedures, no evidence of infection and pt. is currently taking abx. no fluctuance noted, no gum erythema noted. review of this pt. chart shows multiple ED visits for both dental pain and chronic pain. - Review of [employer] controlled prescribing monitoring system shows: this pt. has had 9 narcotic pain rx's in the past 3 months. ORDERS: None required at this time as the diagnosis is clinical ED INTERVENTIONS: -D/w pt. that we will do our best to treat her pain here in the emergency department, although our primary goal is to ensure that any acute medical emergency is treated appropriately. d/w pt. that ultimately she will need to have evaluation by her dentist. -d/w pt. regarding her multiple rx's for narcotic pain medication and that the possibility of tolerance may play a significant role in her inability to have complete relief of symptoms. ---pt was dissatisfied due to non-administration of opiate pain medications via injection and requested to speak with attending physician, Dr. Quinones spoke with the pt. DISCHARGE: At this time pt. is stable for d/c to home. Will provide printed patient care instructions, and any necessary prescriptions. Care plan and follow up instructions have been discussed with the patient prior to discharge. Last Vital Signs Date Time Temp Pulse Resp B/P (MAP) Pulse Ox O2 Delivery O2 Flow Rate FiO2 05/15/17 15:46 98.2 89 19 146/79 98 Room Air Disposition: HOME, SELF-CARE Condition: Stable Scripts Acetaminophen* (TYLENOL EXTRA STRENGTH*) 500 Mg Tablet 500 MG ORAL Q6H Y for Mild Pain/Temp > 100.5, #20 TAB 0 Refills Prov: Zamzam Waddell 05/15/17 Lidocaine HCl 2% Viscous (Lidocaine HCl 2% Viscous) 100 Ml Solution 10 ML ORAL QID, #100 ML Prov: Zamzam Waddell 05/15/17 Referrals: NON PHYSICIAN (PCP) Patient Instructions: Dental Dry Socket, [id number], Dental Pain Additional Instructions: Take previously prescribed medications as directed. Follow up with your DENTIST within 48 HOURS , even if your symptoms have resolved. --Please review list of Dental clinics, if you do not already have a dentist. Return sooner to ED if new symptoms occur, or current symptoms become worse. - Please note that this Emergency Department Report was dictated using [employer] leader technology software, occasionally this can lead to erroneous entry secondary to interpretation by the dictation equipment. Zamzam Waddell May 15, 2017 16:47
[2017-05-15] MEDS ORDERED: LIDOCAINE VISC100 ML ORAL (16:49)
[2017-05-15] MEDS ORDERED: TYLENOL EXTRA500 MG ORAL (16:49)
[2017-05-15 16:54] VITALS: BP 140/86
== END 2017-05-15 16:54 | disposition home or self-care (01) ==
LOC: EMR 16:32
DX: K08.89 Other specified disorders of teeth and supporting structures (principal); F11.20 Opioid dependence, uncomplicated; Z88.6 Allergy status to analgesic agent; Z88.0 Allergy status to penicillin; Z88.2 Allergy status to sulfonamides; Z88.5 Allergy status to narcotic agent; Z91.013 Allergy to seafood; Z91.018 Allergy to other foods; M06.9 Rheumatoid arthritis, unspecified; E11.9 Type 2 diabetes mellitus without complications; J45.909 Unspecified asthma, uncomplicated; Z86.73 Personal history of transient ischemic attack (TIA), and cerebral infarction without residual deficits; R51 Headache
CPT/HCPCS: 99283

== ENCOUNTER 2018-03-13 13:10 | Emergency (ER) | payer MEDICARE, MEDICAID ==
[~2018-03-13] VITALS: Ht 162.6 cm; Wt 59.0 kg
[~2018-03-13 13:10] MED LIST changes: +LIDOCAINE VISC100 ML ORAL; +TYLENOL EXTRA500 MG ORAL
[2018-03-13 13:46] VITALS: BP 94/60
[2018-03-13] MEDS ORDERED: Solu-MEDROL 125mg Inj IVP ONE (14:15)
[2018-03-13] MEDS: Ipratropium 0.02% Inh Soln 2.5ml UD HHN SCH ×3 (14:29→15:00)
[2018-03-13] MEDS: Albuterol ud Inhalation HHN SCH ×3 (14:29→15:00)
[2018-03-13 14:30] VITALS: BP 82/48
[2018-03-13 14:43] LABS: BASOPHILS % (AUTO) 0.8 % (0.0-2.0); EOSINOPHILS % (AUTO) 5.8 % (0.0-3.0); HEMATOCRIT 35.1 % (37.0-47.0); HEMOGLOBIN 10.6 G/DL (12.0-16.0); LYMPHOCYTES % (AUTO) 16.2 % (20.0-45.0); MEAN CORPUSCULAR VOLUME 76 FL (80-99); MONOCYTES % (AUTO) 6.7 % (1.0-10.0); NEUTROPHILS % (AUTO) 70.5 % (45.0-75.0); PLATELET COUNT 235 K/UL (150-450); RED CELL DISTRIBUTION WIDTH 12.3 % (11.6-14.8); WHITE BLOOD COUNT 9.5 K/UL (4.8-10.8)
--- NOTE | 2018-03-13 15:18 | Diagnostic Imaging Report ---
Indication: Shortness of breath Technique: XRAY Chest 1v Comparison: 02/01/2017 Findings: Heart size and mediastinal contours are stable. Atherosclerotic calcifications again noted in a slightly tortuous aorta. There is no definite focal airspace consolidation. No pleural effusion or pneumothorax. There are degenerative changes of the spine. No acute osseous abnormality appreciated. Mild scoliosis again noted. Impression: No radiographic evidence of acute cardiopulmonary disease.
[2018-03-13 15:19] LABS: APPEARANCE,URINE TURBID; BILIRUBIN, URINE NEGATIVE (NEGATIVE); GLUCOSE, URINE (UA) NEGATIVE (NEGATIVE); KETONES,URINE NEGATIVE (NEGATIVE); LEUKOCYTE ESTERASE ,URINE 1+ (NEGATIVE); NITRITE,URINE NEGATIVE (NEGATIVE); PH,URINE 5 (4.5-8.0); PROTEIN,URINE 2+ (NEGATIVE); UROBILINOGEN,URINE 4 MG/DL (0.0-1.0)
--- NOTE | 2018-03-13 15:36 | Diagnostic Imaging Report ---
Indication: Altered mental status Technique: Continuous helical CT scanning of the head was performed utilizing automated exposure control without intravenous contrast material. Axial and coronal reconstructions were obtained. Comparison: None CT dose: Total DLP 1347.93 mGycm; CTDI vol 70.38 mGy Findings: There is no acute intracranial hemorrhage, mass effect, midline shift or cortical edema. The ventricles, cisterns and sulci are within normal limits for age. Visualized mastoid air cells are clear. There are some punctate foci of gas within the right orbit. The right medial orbital wall appears intact although it is not completely imaged. There is no definite infiltration of conal fat. No depressed calvarial fracture. IMPRESSION: No evidence of acute intracranial hemorrhage, mass effect or cortical edema. MRI may be obtained for more sensitive evaluation as clinically indicated. Small foci of gas within the right orbit. No definite fracture appreciated. Correlate for history of penetrating trauma. Recommend CT of the facial bones for further evaluation. The CT scanner at [facility] is accredited by the [employer] and the scans are performed using protocols designed to limit radiation exposure to as low as reasonably achievable to attain images of sufficient resolution adequate for diagnostic evaluation.
[2018-03-13 15:38] LABS: ANION GAP 11 mmol/L (5-15); BLOOD UREA NITROGEN 9 mg/dL (7-18); CARBON DIOXIDE 28 MMOL/L (21-32); CHLORIDE 104 MMOL/L (98-107); CREATININE 0.7 MG/DL (0.55-1.30); POTASSIUM 3.4 MMOL/L (3.5-5.1); SODIUM 143 MMOL/L (136-145)
[2018-03-13 15:41] LABS: COLOR,URINE YELLOW
[2018-03-13 15:52] LABS: ALANINE AMINOTRANSFERASE 27 U/L (12-78); ALBUMIN 3.1 G/DL (3.4-5.0); ALBUMIN/GLOBULIN RATIO 0.7 (1.0-2.7); ALKALINE PHOSPHATASE 109 U/L (46-116); ASPARTATE AMINO TRANSFERASE 30 U/L (15-37); BILIRUBIN,TOTAL 0.5 MG/DL (0.2-1.0); CKMB < 0.5 NG/ML (0.0-3.6); CREATINE KINASE 45 U/L (26-308)
[2018-03-13] MEDS ORDERED: UNOBMED (16:22)
[2018-03-13 16:44] VITALS: BP 134/68
[2018-03-13 17:40] VITALS: BP 134/68
--- NOTE | 2018-03-13 18:05 | Emergency Room Report ---
History of Present Illness General Chief Complaint: General Complaint Source: Patient, Medical Record Present Illness HPI 67-year-old female presents ED for evaluation. Patient complaining of shortness of breath, cough 2 days. States symptoms started after she had a fall 2 days. Unsure if she hit her head. Patient does not remember what happened. States she is coughing up blood. Denies sick contacts or recent travel. Notes history of asthma. Denies fevers or chills. No other aggravating relieving factors. Denies any other associated symptoms Allergies: Coded Allergies: IBUPROFEN (Verified Allergy, Severe, HIVES, 12/31/16) Dairy (Unverified Allergy, Unknown, 12/31/16) EGG (Unverified Allergy, Unknown, 12/31/16) IODINE (Verified Allergy, Unknown, 12/31/16) LATEX (Unverified Allergy, Unknown, 01/27/16) [place] (Unverified Allergy, Unknown, 01/27/16) PEACH (Unverified Allergy, Unknown, 12/31/16) PENICILLINS (Verified Allergy, Unknown, 12/31/16) PINEAPPLE (Unverified Allergy, Unknown, HIVES, SWELLING, 12/31/16) STRAWBERRY (Unverified Allergy, Unknown, Hives, 12/31/16) SULFA (SULFONAMIDE ANTIBIOTICS) (Verified Allergy, Unknown, 12/31/16) TRAMADOL (Verified Allergy, Unknown, 12/31/16) PER RN Uncoded Allergies: SEAFOOD (Allergy, Severe, SWELLING, 12/12/11) Patient History Past Medical History: DM, asthma, CVA/TIA Past Surgical History: none Pertinent Family History: none Social History: Denies: smoking, alcohol use, drug use Now: No Immunizations: UTD Reviewed Nursing Documentation: PMH: Agreed; PSxH: Agreed Nursing Documentation-PMH Past Medical History: No History, Except For Hx Cardiac Problems: Yes - Rheumatoid Arthritis Hx Hypertension: No Hx Pacemaker: No Hx Asthma: Yes Hx Diabetes: Yes Hx Cancer: No Hx Gastrointestinal Problems: No Hx Dialysis: No Hx Neurological Problems: No Hx Cerebrovascular Accident: Yes - Stroke 9 yrs ago. Hx Seizures: No Hx Headaches: Yes Review of Systems All Other Systems: negative except mentioned in HPI Physical Exam Vital Signs Date Time Temp Pulse Resp B/P (MAP) Pulse Ox O2 Delivery O2 Flow Rate FiO2 03/13/18 13:24 98.9 115 20 94/60 88 Room Air 99.0 03/13/18 14:30 2.0 28 Sp02 EP Interpretation: reviewed, normal General Appearance: no apparent distress, alert, GCS 15, non-toxic Head: normocephalic, atraumatic Eyes: bilateral eye normal inspection, bilateral eye PERRL ENT: hearing grossly normal, normal pharynx, no angioedema, normal voice Neck: full range of motion, supple/symm/no masses Respiratory: chest non-tender, normal breath sounds, speaking full sentences, wheezing Cardiovascular #1: regular rate, rhythm, no edema Cardiovascular #2: 2+ carotid (R), 2+ carotid (L), 2+ radial (R), 2+ radial (L) , 2+ dorsalis pedis (R), 2+ dorsalis pedis (L) Gastrointestinal: normal bowel sounds, non tender, soft, non-distended, no guarding, no rebound Rectal: deferred Genitourinary: normal inspection, no CVA tenderness Musculoskeletal: back normal, gait/station normal, normal range of motion, non- tender Neurologic: alert, oriented x3, responsive, motor strength/tone normal, sensory intact, speech normal Psychiatric: judgement/insight normal, memory normal, mood/affect normal, no suicidal/homicidal ideation Reflexes: 3+ bicep (R), 3+ bicep (L), 3+ tricep (R), 3+ tricep (L), 3+ knee (R) , 3+ knee (L) Skin: normal color, no rash, warm/dry, well hydrated Lymphatic: no adenopathy Medical Decision Making Diagnostic Impression: Primary Impression: Syncope Qualified Codes: R55 - Syncope and collapse Additional Impressions: Asthma Qualified Codes: J45.909 - Unspecified asthma, uncomplicated UTI (urinary tract infection) Qualified Codes: N39.0 - Urinary tract infection, site not specified Head injury Qualified Codes: S09.90XA - Unspecified injury of head, initial encounter ER Course Hospital Course 67-year-old F presents ED s/p syncopal episode, c/o cough and sob. hypotensive Differential diagnoses include: HI/unstable angina, arrythmia, dehydration, CVA/ TIA Clinical course Patient placed on stretcher. on cardiac technician. After initial history and physical I ordered labs, EKG, chest x-ray, IVFs, CT Brain, nebulizer treatments labs reviewed- no leukocytosis, hemoglobin/hematocrit ok, electrolytes okay, troponins negative, UA + bacteria EKG- NSR, no acute ischemic changes interpreted bym e Chest x-ray- no acute process CT brain - no acute bleed, ? air in R orbit - recommend CT facial Patient initially hypotensive, improved with IV fluids. CT facial bone ordered Given presentation I believe patient should be admitted Patient states she wishes to go home. I discussed findings with the patient and recommend that patient stay and complete CT facial bone. Understands the risks of leaving. Patient has competency to make her own decisions. Signed AMA form. I. I feel this is a highly complex case requiring extensive working including EKG/Rhythm strip, Xray/CT/US, Blood/urine lab work, repeat exams while in ED, and administration of strong opiates/narcotics for pain control, admission to hospital or close patient follow up. Diagnosis - syncope, asthma, head injury patient left AMA Labs Test 03/13/18 14:23 03/13/18 14:26 White Blood Count 9.5 K/UL (4.8-10.8) Red Blood Count 4.60 M/UL (4.20-5.40) Hemoglobin 10.6 G/DL (12.0-16.0) Hematocrit 35.1 % (37.0-47.0) Mean Corpuscular Volume 76 FL (80-99) Mean Corpuscular Hemoglobin 23.0 PG (27.0-31.0) Mean Corpuscular Hemoglobin Concent 30.1 G/DL (32.0-36.0) Red Cell Distribution Width 12.3 % (11.6-14.8) Platelet Count 235 K/UL (150-450) Mean Platelet Volume 11.4 FL (6.5-10.1) Neutrophils (%) (Auto) 70.5 % (45.0-75.0) Lymphocytes (%) (Auto) 16.2 % (20.0-45.0) Monocytes (%) (Auto) 6.7 % (1.0-10.0) Eosinophils (%) (Auto) 5.8 % (0.0-3.0) Basophils (%) (Auto) 0.8 % (0.0-2.0) Sodium Level 143 MMOL/L (136-145) Potassium Level 3.4 MMOL/L (3.5-5.1) Chloride Level 104 MMOL/L (98-107) Carbon Dioxide Level 28 MMOL/L (21-32) Anion Gap 11 mmol/L (5-15) Blood Urea Nitrogen 9 mg/dL (7-18) Creatinine 0.7 MG/DL (0.55-1.30) Estimat Glomerular Filtration Rate > 60 mL/min (>60) Glucose Level 105 MG/DL (74-106) Lactic Acid Level 1.30 mmol/L (0.4-2.0) Calcium Level 9.0 MG/DL (8.5-10.1) Total Bilirubin 0.5 MG/DL (0.2-1.0) Aspartate Amino Transf (AST/SGOT) 30 U/L (15-37) Alanine Aminotransferase (ALT/SGPT) 27 U/L (12-78) Alkaline Phosphatase 109 U/L (46-116) Total Creatine Kinase 45 U/L (26-308) Creatine Kinase MB < 0.5 NG/ML (0.0-3.6) Creatine Kinase MB Relative Index 1.1 Troponin I 0.000 ng/mL (0.000-0.056) Pro-B-Type Natriuretic Peptide 88 pg/mL (0-125) Total Protein 7.3 G/DL (6.4-8.2) Albumin 3.1 G/DL (3.4-5.0) Globulin 4.2 g/dL Albumin/Globulin Ratio 0.7 (1.0-2.7) Urine Color Yellow Urine Appearance Turbid Urine pH 5 (4.5-8.0) Urine Specific [place] 1.015 (1.005-1.035) Urine Protein 2+ (NEGATIVE) Urine Glucose (UA) Negative (NEGATIVE) Urine Ketones Negative (NEGATIVE) Urine Blood 1+ (NEGATIVE) Urine Nitrite Negative (NEGATIVE) Urine Bilirubin Negative (NEGATIVE) Urine Urobilinogen 4 MG/DL (0.0-1.0) Urine Leukocyte Esterase 1+ (NEGATIVE) Urine RBC 2-4 /HPF (0 - 2) Urine WBC 5-10 /HPF (0 - 2) Urine Squamous Epithelial Cells Many /LPF (NONE/OCC) Urine Bacteria Few /HPF (NONE) Urine Hyaline Casts 0-2 /LPF (NONE) Urine Yeast Occasional /HPF (NONE) EKG Diagnostic Results Rate: normal Rhythm: NSR ST Segments: no acute changes ASA given to the pt in ED: No Rhythm Strip Diag. Results EP Interpretation: yes Rhythm: NSR, no PVC's, no ectopy Chest X-Ray Diagnostic Results Chest X-Ray Diagnostic Results : Chest X-Ray Ordered: Yes # of Views/Limited/Complete: 1 View Indication: Shortness of Breath EP Interpretation: Yes Interpretation: no consolidation, no effusion, no pneumothorax, no acute cardiopulmonary disease Impression: No acute disease Electronically Signed by: Electronically signed by Allen Lara MD CT/MRI/US Diagnostic Results CT/MRI/US Diagnostic Results : Imaging Test Ordered: CT Head Impression No evidence of acute intracranial hemorrhage, mass effect or cortical edema. MRI may be obtained for more sensitive evaluation as clinically indicated. Small foci of gas within the right orbit. No definite fracture appreciated. Correlate for history of penetrating trauma. Recommend CT of the facial bones for further evaluation. Last Vital Signs Date Time Temp Pulse Resp B/P (MAP) Pulse Ox O2 Delivery O2 Flow Rate FiO2 03/13/18 17:40 98.7 98 20 134/68 98 Nasal Cannula 2.0 28 99.0 Status: improved Disposition: AGAINST MEDICAL ADVICE Condition: Stable Allen Lara MD Mar 13, 2018 18:05
--- NOTE | 2018-03-14 12:01 | Diagnostic Imaging Report ---
Indications: Pain, status post fall Technique: Spiral images obtained through the facial bones. No IV contrast utilized. Multiplanar reconstructions were generated.Total dose length product 513 mGycm. CTDIvol(s) 28 mGy. Dose reduction achieved using automated exposure control Comparison: none Findings: No evidence of acute fracture. No significant soft tissue contusion. Optic globes and retroseptal orbits are intact. The visualized intracranial structures are unremarkable. No worrisome sinus opacification demonstrated. There are mild degenerative changes of the cervical spine incidentally noted. Impression: No acute bony trauma This agrees with the preliminary interpretation provided overnight by [facility] teleradiology service. The CT scanner at [facility] is accredited by the [employer] and the scans are performed using protocols designed to limit radiation exposure to as low as reasonably achievable to attain images of sufficient resolution adequate for diagnostic evaluation.
== END 2018-03-13 17:47 | disposition left against medical advice (07) ==
LOC: EMR 14:30 → UNDOADMIN 15:15 → 2E 15:15 → EDBEDREQ 16:45
DX: J45.909 Unspecified asthma, uncomplicated (principal); R55 Syncope and collapse; N39.0 Urinary tract infection, site not specified; S09.90XA Unspecified injury of head, initial encounter; M06.9 Rheumatoid arthritis, unspecified; E11.9 Type 2 diabetes mellitus without complications; Z86.73 Personal history of transient ischemic attack (TIA), and cerebral infarction without residual deficits; Z88.6 Allergy status to analgesic agent; Z88.0 Allergy status to penicillin; Z88.2 Allergy status to sulfonamides; Z91.018 Allergy to other foods; Z91.040 Latex allergy status; Z91.041 Radiographic dye allergy status; Z91.012 Allergy to eggs; Z91.011 Allergy to milk products; W18.30XA Fall on same level, unspecified, initial encounter; Y92.9 Unspecified place or not applicable
CPT/HCPCS: 36415; 70450; 70486; 71045; 80053; 81003; 82550; 82553; 83605; 83880; 84484; 85025; 87040; 87086; 87181; 93005; 94640; 94664; 96361; 96365; 96375; 99285; J1956; J2930

== ENCOUNTER 2018-06-14 14:50 | Emergency (ER) | payer MEDICARE, MEDICAID ==
[~2018-06-14] VITALS: Ht 170.2 cm; Wt 59.0 kg
[~2018-06-14 14:50] MED LIST changes: +UNOBMED
[2018-06-14 14:54] VITALS: BP 110/69
[2018-06-14] MEDS ORDERED: Morphine Sulfate 4mg/ml Inj (IV/IM USE ONLY) IM ONE (15:15)
--- NOTE | 2018-06-14 15:16 | Emergency Room Report ---
History of Present Illness General Chief Complaint: Lower Back Pain or Injury Source: Patient Present Illness HPI Patient presents with complaints of low back pain she reports that she recently had epidural injections and they usually last longer than this however this time they wore off faster and she's having recurrent pain Similar location to previous mid lower back region Denies any recent fall or trauma denies any chest pain or shortness of breath denies any dysuria frequency denies any vomiting pain is 8 out of 10 localized to the para lumbar region L3 L4 area Denies any focal neuropathy in the lower extremities Denies any saddle paresthesia Allergies: Coded Allergies: IBUPROFEN (Verified Allergy, Severe, HIVES, 12/31/16) Dairy (Unverified Allergy, Unknown, 12/31/16) EGG (Unverified Allergy, Unknown, 12/31/16) IODINE (Verified Allergy, Unknown, 12/31/16) LATEX (Unverified Allergy, Unknown, 01/27/16) [place] (Unverified Allergy, Unknown, 01/27/16) PEACH (Unverified Allergy, Unknown, 12/31/16) PENICILLINS (Verified Allergy, Unknown, 12/31/16) PINEAPPLE (Unverified Allergy, Unknown, HIVES, SWELLING, 12/31/16) STRAWBERRY (Unverified Allergy, Unknown, Hives, 12/31/16) SULFA (SULFONAMIDE ANTIBIOTICS) (Verified Allergy, Unknown, 12/31/16) TRAMADOL (Verified Allergy, Unknown, 12/31/16) PER RN Uncoded Allergies: SEAFOOD (Allergy, Severe, SWELLING, 12/12/11) Patient History Past Medical History: see triage record Pertinent Family History: none Now: No Reviewed Nursing Documentation: PMH: Agreed; PSxH: Agreed Nursing Documentation-PMH Past Medical History: No History, Except For Hx Cardiac Problems: Yes - Rheumatoid Arthritis Hx Hypertension: No Hx Pacemaker: No Hx Asthma: Yes Hx Diabetes: Yes Hx Cancer: No Hx Gastrointestinal Problems: No Hx Dialysis: No Hx Neurological Problems: No Hx Cerebrovascular Accident: Yes - Stroke 9 yrs ago. Hx Seizures: No Hx Headaches: Yes Review of Systems All Other Systems: negative except mentioned in HPI Physical Exam Vital Signs Date Time Temp Pulse Resp B/P (MAP) Pulse Ox O2 Delivery O2 Flow Rate FiO2 06/14/18 14:54 98.8 102 18 110/69 93 Room Air Sp02 EP Interpretation: reviewed, normal General Appearance: no apparent distress Head: normocephalic, atraumatic Eyes: bilateral eye PERRL, bilateral eye EOMI ENT: hearing grossly normal, normal pharynx, TMs + canals normal, uvula midline Neck: full range of motion, supple, no meningismus, no bony tend Respiratory: lungs clear, normal breath sounds, no rhonchi, no respiratory distress, no retraction, no accessory muscle use Cardiovascular #1: normal peripheral pulses, regular rate, rhythm, no edema, no gallop, no JVD, no murmur Gastrointestinal: normal bowel sounds, non tender, soft, no mass, no organomegaly, non-distended, no guarding, no hernia, no pulsatile mass, no rebound Genitourinary: no CVA tenderness Musculoskeletal: other - Discomfort palpable to paralumbar region L3-L4, no midline step-offs, no ecchymosis or bruising sensory intact Neurologic: oriented x3, responsive, motor strength/tone normal, sensory intact Psychiatric: mood/affect normal Skin: normal color, no rash, warm/dry, palpation normal Lymphatic: normal inspection, no adenopathy Medical Decision Making Diagnostic Impression: Primary Impression: Low back pain Additional Impression: Opioid dependence ER Course Given the patient's history and presentation multiple differentials considered Including but not limited to neurological, neurosurgical, infectious orthopedic pathology Patient has a benign medical evaluation Was provided with IM injection of pain medication resting comfortably Patient review of CURES reveals pain management follow-up It was discussed with the patient the requirement for close follow-up with specialist , Last Vital Signs Date Time Temp Pulse Resp B/P (MAP) Pulse Ox O2 Delivery O2 Flow Rate FiO2 06/14/18 14:54 98.8 102 18 110/69 93 Room Air Status: improved Disposition: HOME, SELF-CARE Condition: Improved Additional Instructions: Patient is provided with the discharge instructions notified to follow up with primary doctor in the next 2-3 days otherwise return to the er with any worsening symptoms. Please note that this report is being documented using [employer] technology. This can lead to erroneous entry secondary to incorrect interpretation by the dictating instrument. Kartik Colvin DO Jun 14, 2018 15:16
[2018-06-14 16:04] VITALS: BP 98/57
[2018-06-14 16:05] VITALS: BP 110/69
== END 2018-06-14 16:05 | disposition home or self-care (01) ==
LOC: EMR 15:38
DX: M54.5 Low back pain (principal); F11.20 Opioid dependence, uncomplicated; E11.9 Type 2 diabetes mellitus without complications; M06.9 Rheumatoid arthritis, unspecified; J45.909 Unspecified asthma, uncomplicated; Z86.73 Personal history of transient ischemic attack (TIA), and cerebral infarction without residual deficits
CPT/HCPCS: 96372; 99283; J2270

== ENCOUNTER 2018-09-13 15:55 | Emergency (ER) | payer MEDICARE, MEDICAID ==
[~2018-09-13] VITALS: Ht 170.2 cm; Wt 63.5 kg
[2018-09-13 16:09] VITALS: BP 135/85
--- NOTE | 2018-09-13 16:29 | Emergency Room Report ---
History of Present Illness General Chief Complaint: Pain Source: Patient Present Illness HPI 68-year-old female patient presents ER complaining of left knee pain for the past 4 days. Denies acute injury or trauma. Denies pain radiating from her back. States that she recently had epidural injections put into her back 2 days ago when she told her primary care doctor about the pain in her knee. Denies fever, chest pain, shortness of breath. Denies vomiting. Denies other aggravating or relieving factors. Denies taking blood thinner medications. Denies calf pain. Reports able to ambulate. Denies hearing a popping sensation with walking. Reports pain on the lateral and medial aspect of the knee. States normally takes [place] for pain relief. Allergies: Coded Allergies: IBUPROFEN (Verified Allergy, Severe, HIVES, 12/31/16) Dairy (Unverified Allergy, Unknown, 12/31/16) EGG (Unverified Allergy, Unknown, 12/31/16) IODINE (Verified Allergy, Unknown, 12/31/16) LATEX (Unverified Allergy, Unknown, 01/27/16) [place] (Unverified Allergy, Unknown, 01/27/16) PEACH (Unverified Allergy, Unknown, 12/31/16) PENICILLINS (Verified Allergy, Unknown, 12/31/16) PINEAPPLE (Unverified Allergy, Unknown, HIVES, SWELLING, 12/31/16) STRAWBERRY (Unverified Allergy, Unknown, Hives, 12/31/16) SULFA (SULFONAMIDE ANTIBIOTICS) (Verified Allergy, Unknown, 12/31/16) TRAMADOL (Verified Allergy, Unknown, 12/31/16) PER RN Uncoded Allergies: SEAFOOD (Allergy, Severe, SWELLING, 12/12/11) Patient History Past Medical History: see triage record Now: No Reviewed Nursing Documentation: PMH: Agreed; PSxH: Agreed Nursing Documentation-PMH Past Medical History: No History, Except For Hx Cardiac Problems: Yes - Rheumatoid Arthritis Hx Hypertension: No Hx Pacemaker: No Hx Asthma: Yes Hx Diabetes: Yes Hx Cancer: No Hx Gastrointestinal Problems: No Hx Dialysis: No Hx Neurological Problems: No - nerve block surgery Hx Cerebrovascular Accident: Yes - Stroke 9 yrs ago. Hx Seizures: No Hx Headaches: Yes Review of Systems All Other Systems: negative except mentioned in HPI Physical Exam Vital Signs Date Time Temp Pulse Resp B/P (MAP) Pulse Ox O2 Delivery O2 Flow Rate FiO2 09/13/18 16:00 98.6 86 19 138/89 94 Room Air Sp02 EP Interpretation: reviewed, normal General Appearance: well appearing, no apparent distress, alert, GCS 15, non- toxic Head: normocephalic, atraumatic Eyes: bilateral eye normal inspection, bilateral eye PERRL ENT: hearing grossly normal, normal pharynx, no angioedema, normal voice, uvula midline, moist mucus membranes Neck: full range of motion Respiratory: lungs clear, normal breath sounds, no rhonchi, no respiratory distress, no accessory muscle use, no wheezing, speaking full sentences Cardiovascular #1: regular rate, rhythm, no edema, normal capillary refill Cardiovascular #2: 2+ dorsalis pedis (R), 2+ dorsalis pedis (L) Musculoskeletal: back normal, digits/nails normal, gait/station normal, normal range of motion, non-tender, no calf tenderness, Wade's Sign negative, other - NVI, no laxity with varus or valgus stress, negative Homans sign, no erythema or edema, no gouty tophi Psychiatric: mood/affect normal Skin: no rash Medical Decision Making PA Attestation Dr. Colvin is my supervising Physician whom patient management has been discussed with. Diagnostic Impression: Primary Impression: Left knee pain ER Course Pt. presents to the ED c/o left knee pain. Ddx considered but are not limited to fracture, sprain, strain, contusion, dislocation, arthritis, opioid dependence. No erythema, no warmth to touch, no fever, nontoxic appearing, low suspicion for septic joint. Soft compartments, no pulselessness, no pallor, no paresthesias, low suspicion for compartment syndrome at this time. No calf pain, negative Homans sign, no chest pain or shortness of breath, dorsalis pedis pulse 2+, low suspicion for DVT, however will order US to rule out. Vital signs: are WNL, pt. is afebrile Ordered X-ray US and pain medication. ER COURSE Provided with pain medication. CURES reviewed. An X-ray of the left knee shows no acute fracture, degenerative changes noted. Discuss results with the patient. Provided patient with copy of results. Instructed patient to followup with PCP and discuss results of report with patient, discuss need for further treatment and referral. Cannot provide refill of opioid medications, patient states she understands, will continue take [place] as previously prescribed to her for pain. We will follow-up with primary care provider. US of left lower extremity shows negative for DVT. CORINA wrap was applied to the left knee and was checked afterwards by me showing good alignment and support with distal neurovascular functioning intact. Cane provided. Patient instructed on RICE method: rest, ice, compression, elevation. Patient instructed on rest, ice and heat. Patient instructed to be WBAT Contact information for orthopedic urgent care provided, follow-up with urgent care if unable to followup with primary care provider and get referral to cash reconciliation specialist. Followup with primary care provider. Discuss referral to ortho/pain management/ PT as needed. Discuss further imaging with MRI/CT as needed. Reports pain symptoms improved. Informed patient she needs to come up with a plan with her primary care provider for acute exacerbations of chronic pain, ER cannot continually provide opioid pain medication to her. DISCHARGE: At this time pt. is stable for d/c to home. Patient is resting comfortably, in no acute distress, nontoxic appearing, talking without difficulty. Will provide printed patient care instructions, and any necessary prescriptions. Patient instructed to follow with primary care provider in 3 - 5 days and to request further follow-up as needed. Care plan and follow up instructions have been discussed with the patient prior to discharge. Take medications as directed. Patient questions asked and answered. Patient reports understanding and agreement to treatment plan. ER precautions given, patient instructed to return to ER immediately for any new or worsening of symptoms. - Please note that this Emergency Department Report was dictated using [employer] government technology software, occasionally this can lead to erroneous entry secondary to interpretation by the dictation equipment. Other X-Ray Diagnostic Results Other X-Ray Diagnostic Results : X-Ray ordered: Left knee # of Views/Limited Vs Complete: 3 View Indication: Pain EP Interpretation: Yes PA Xray: Interpretation reviewed, by supervising MD, and agrees with findings. Interpretation: no dislocation, no soft tissue swelling, no fractures, other - Degenerative changes Impression: No acute disease NADIRA ScribNatalia Saldivar PA-C CT/MRI/US Diagnostic Results CT/MRI/US Diagnostic Results : Imaging Test Ordered: LLE venous duplex US Impression negative Last Vital Signs Date Time Temp Pulse Resp B/P (MAP) Pulse Ox O2 Delivery O2 Flow Rate FiO2 09/13/18 16:09 98.6 88 20 135/85 95 Room Air Status: improved Disposition: HOME, SELF-CARE Condition: Stable Patient Instructions: Knee Pain, [id number] Additional Instructions: Patient instructed to follow up with primary care provider and discuss further referral to orthopedics/physical therapy/pain management as needed. If unable to followup with PCP, followup with orthopedic urgent care in 5-7 days , call to schedule appointment. Patient instructed on RICE method: rest, ice, compression, elevation. Patient instructed to WBAT. Take medications as directed. Patient questions asked and answered. ER precautions given, patient instructed to return to ER immediately for any new or worsening of symptoms. [facility] [address] [facility] [address] [facility], [id number] [email or web address] [email or web address] Saldivar Sep 13, 2018 16:29
[2018-09-13] MEDS ORDERED: Morphine Sulfate 2mg/ml Inj(IV/IM USE ONLY) IM ONE (16:45)
[2018-09-13 18:20] VITALS: BP 130/80
--- NOTE | 2018-09-13 20:06 | Diagnostic Imaging Report ---
EXAM: US Duplex Left Lower Extremity Veins CLINICAL HISTORY: PAIN TECHNIQUE: Real-time duplex ultrasound scan of the left lower extremity veins integrating B-mode two-dimensional vascular structure, Doppler spectral analysis, color flow Doppler imaging and compression. COMPARISON: No relevant prior studies available. FINDINGS: Deep veins: Unremarkable. No DVT in the visualized common femoral, femoral, proximal deep femoral or popliteal veins. The veins demonstrate normal color flow, are normally compressible, with normal phasic flow and/or augmentation response. Superficial veins: Unremarkable. No thrombus in the visualized great saphenous vein. Soft tissues: No acute findings. No popliteal cyst. IMPRESSION: No evidence for DVT in the visualized portions of the veins of the left lower extremity.
== END 2018-09-13 18:21 | disposition home or self-care (01) ==
LOC: EMR 17:42
DX: M25.562 Pain in left knee (principal); M06.9 Rheumatoid arthritis, unspecified; E11.9 Type 2 diabetes mellitus without complications; J45.909 Unspecified asthma, uncomplicated; I25.2 Old myocardial infarction; Z86.73 Personal history of transient ischemic attack (TIA), and cerebral infarction without residual deficits
CPT/HCPCS: 73562; 93971; 96372; 99284; J2270